=== PATIENT | female | born 1990 | race Caucasian/White ===

== ENCOUNTER 2017-08-29 16:17 | Outpatient (RCR) | payer MEDICAID, SELFPAY ==
[2017-08-29 16:31] LABS: Prothrombin Time Fingerstick 33.7 SEC (11.9-14.4)
== END 2017-08-29 16:18 | disposition home or self-care (01) ==
LOC: MTLAB 16:17
PROVIDERS: Visit Provider Internal Medicine Cardiovascular Disease
DX: Z95.2 Presence of prosthetic heart valve (principal)
CPT/HCPCS: 36416; 85610

== ENCOUNTER 2017-10-04 12:43 | Outpatient (RCR) | payer MEDICAID, SELFPAY | END 2017-10-04 13:00 | disposition home or self-care (01) | LOC: MTLAB 12:43 | PROVIDERS: Visit Provider Internal Medicine Cardiovascular Disease | DX: Z95.2 Presence of prosthetic heart valve (principal) | CPT/HCPCS: 36416; 85610 ==

== ENCOUNTER 2017-10-26 16:06 | Outpatient (RCR) | payer MEDICAID, SELFPAY ==
[2017-10-30 08:46] LABS: Prothrombin Time Fingerstick 40.2 SEC (11.9-14.4)
== END 2017-10-26 17:00 | disposition home or self-care (01) ==
LOC: MTLAB 16:06
PROVIDERS: Visit Provider Internal Medicine Cardiovascular Disease
DX: Z95.2 Presence of prosthetic heart valve (principal)
CPT/HCPCS: 36416; 85610

== ENCOUNTER 2017-11-28 16:27 | Outpatient (RCR) | payer MEDICAID, SELFPAY ==
[2017-11-30 07:10] LABS: Prothrombin Time Fingerstick 32.6 SEC (11.9-14.4)
== END 2017-11-28 17:00 | disposition home or self-care (01) ==
LOC: MTLAB 16:27
PROVIDERS: Visit Provider Internal Medicine Cardiovascular Disease
DX: Z95.2 Presence of prosthetic heart valve (principal)
CPT/HCPCS: 36416; 85610

== ENCOUNTER 2017-12-27 14:24 | Outpatient (RCR) | payer MEDICAID, SELFPAY ==
[2017-12-27 14:36] LABS: Prothrombin Time Fingerstick 31.5 SEC (11.9-14.4)
== END 2017-12-27 15:00 | disposition home or self-care (01) ==
LOC: MTLAB 14:24
PROVIDERS: Visit Provider Internal Medicine Cardiovascular Disease
DX: Z95.2 Presence of prosthetic heart valve (principal)
CPT/HCPCS: 36416; 85610

== ENCOUNTER → 2018-01-23 14:18 | Outpatient (CLI) | payer MEDICAID, SELFPAY ==
[2018-01-23 15:49] LABS: International Normalized Ratio 2.2; Prothrombin Time (Protime)PT. 24.7 SECONDS (11.7-14.9)
[2018-01-23 16:01] LABS: ALB/GLOB Ratio 1.2 RATIO (0.9-2.4); AST(SGOT) 16 U/L (15-37); Alanine Aminotransfer ALT/SGPT 21 U/L (13-56); Albumin, Serum 4.5 g/dL (3.2-5.0); Alkaline Phosphatase 56 U/L (45-117); Anion Gap 8 (5-15); BUN 10 mg/dL (7-18); BUN/Creat Ratio 13.2 RATIO (10-20); Calcium,Total 8.5 mg/dL (8.5-10.1); Chloride 108 mmol/L (98-107); Creatinine, Serum 0.76 mg/dL (0.55-1.02); EST Glomerular Filtration Rate 97 mL/min (>60); Est Glom Filt Rate - Afr Amer 118 mL/min (>60); Globulin 3.6 g/dL (2.2-4.2); Glucose 94 mg/dL (74-106); Potassium 3.7 mmol/L (3.5-5.1); Protein, Total 8.1 g/dL (6.4-8.2); Sodium Level 142 mmol/L (136-145)
[2018-01-29 11:54] LABS: Lamotrigine (Lamictal) Level 4.8 ug/mL (2.0-20.0)
== END ==
PROVIDERS: Visit Provider Internal Medicine Cardiovascular Disease
DX: G40.309 Generalized idiopathic epilepsy and epileptic syndromes, not intractable, without status epilepticus (principal); Z95.2 Presence of prosthetic heart valve
CPT/HCPCS: 36415; 80053; 82542; 85610

== ENCOUNTER 2018-02-13 14:37 | Outpatient (RCR) | payer MEDICAID, SELFPAY | END 2018-02-13 16:00 | LOC: MTLAB 14:37 | PROVIDERS: Visit Provider Internal Medicine Cardiovascular Disease | DX: Z95.2 Presence of prosthetic heart valve (principal) | CPT/HCPCS: 36416; 85610 ==

== ENCOUNTER 2018-03-25 13:43 | Outpatient (RCR) | payer MEDICAID, SELFPAY ==
[2018-03-11 14:20] LABS: Prothrombin Time Fingerstick 39.1 SEC (11.9-14.4)
[2018-03-25 13:56] LABS: Prothrombin Time Fingerstick 43.4 SEC (11.9-14.4)
[2018-03-25 15:41] LABS: International Normalized Ratio 3.2; Prothrombin Time (Protime)PT. 33.1 SECONDS (11.7-14.9)
== END 2018-03-25 15:00 | disposition home or self-care (01) ==
LOC: MTLAB 13:43
PROVIDERS: Visit Provider Internal Medicine Cardiovascular Disease
DX: Z95.2 Presence of prosthetic heart valve (principal)
CPT/HCPCS: 36415; 36416; 85610

== ENCOUNTER 2018-04-10 11:49 | Outpatient (RCR) | payer MEDICAID, SELFPAY ==
[2018-04-10 14:44] LABS: Hematocrit 39.9 % (37-47); Mean Corp Hgb Conc 35.1 g/gl (32-36); Mean Corpuscular Hgb 33.2 pg (27.0-32.0); Mean Corpuscular Volume 94.5 fL (81-99); Mean Platelet Vol. 10.6 fl (6.2-12.0); Platelet Count 176 K/mm3 (150-450); RBC Distribution Width CV 12.2 % (11.6-14.6); RBC Distribution Width SD 41.2 fl (35.1-43.9); Red Blood Count 4.22 M/mm3 (4.2-5.4); White Blood Count 4.9 K/mm3 (4.4-11.0)
[2018-04-10 14:49] LABS: Scan Indicated on CBC? Y/N NO
[2018-04-10 14:51] LABS: International Normalized Ratio 2.5; Prothrombin Time (Protime)PT. 26.9 SECONDS (11.7-14.9)
[2018-04-10 15:04] LABS: ALB/GLOB Ratio 1.3 RATIO (0.9-2.4); AST(SGOT) 21 U/L (15-37); Alanine Aminotransfer ALT/SGPT 23 U/L (13-56); Albumin, Serum 4.4 g/dL (3.2-5.0); Alkaline Phosphatase 50 U/L (45-117); Anion Gap 9 (5-15); BUN 8 mg/dL (7-18); BUN/Creat Ratio 10.9 RATIO (10-20); Calcium,Total 8.7 mg/dL (8.5-10.1); Chloride 106 mmol/L (98-107); Creatinine, Serum 0.73 mg/dL (0.55-1.02); EST Glomerular Filtration Rate 101 mL/min (>60); Est Glom Filt Rate - Afr Amer 122 mL/min (>60); Globulin 3.4 g/dL (2.2-4.2); Glucose 77 mg/dL (74-106); Protein, Total 7.8 g/dL (6.4-8.2); Sodium Level 141 mmol/L (136-145)
== END 2018-04-10 13:00 ==
LOC: MTLAB 11:49
PROVIDERS: Visit Provider Internal Medicine Cardiovascular Disease
DX: G40.309 Generalized idiopathic epilepsy and epileptic syndromes, not intractable, without status epilepticus (principal)
CPT/HCPCS: 36415; 80053; 85027; 85610

== ENCOUNTER 2018-05-01 10:56 | Outpatient (RCR) | payer MEDICAID, SELFPAY | END 2018-05-01 12:00 | disposition home or self-care (01) | LOC: MTLAB 10:56 | PROVIDERS: Visit Provider Internal Medicine Cardiovascular Disease | DX: Z95.2 Presence of prosthetic heart valve (principal) | CPT/HCPCS: 36416; 85610 ==

== ENCOUNTER 2018-05-28 12:27 | Outpatient (RCR) | payer MEDICAID, SELFPAY ==
[2018-05-28 12:45] LABS: Prothrombin Time Fingerstick 25.6 SEC (11.9-14.4)
== END 2018-05-28 14:00 | disposition home or self-care (01) ==
LOC: MTLAB 12:27
PROVIDERS: Referring Provider Internal Medicine Cardiovascular Disease; Visit Provider Internal Medicine Cardiovascular Disease
DX: Z95.2 Presence of prosthetic heart valve (principal); G40.309 Generalized idiopathic epilepsy and epileptic syndromes, not intractable, without status epilepticus
CPT/HCPCS: 36416; 85610

== ENCOUNTER 2018-06-26 12:04 | Outpatient (RCR) | payer MEDICAID, SELFPAY ==
[2018-06-26 12:16] LABS: Prothrombin Time Fingerstick 27.6 SEC (11.9-14.4)
== END 2018-06-26 13:00 | disposition home or self-care (01) ==
LOC: MTLAB 12:04
PROVIDERS: Referring Provider Internal Medicine Cardiovascular Disease; Visit Provider Internal Medicine Cardiovascular Disease
DX: Z95.2 Presence of prosthetic heart valve (principal); G40.309 Generalized idiopathic epilepsy and epileptic syndromes, not intractable, without status epilepticus
CPT/HCPCS: 36416; 85610

== ENCOUNTER 2018-07-31 11:06 | Outpatient (RCR) | payer MEDICAID, SELFPAY ==
[2018-07-25 15:41] LABS: Prothrombin Time Fingerstick 22.3 SEC (11.9-14.4)
[2018-07-31 11:21] LABS: Prothrombin Time Fingerstick 25.7 SEC (11.9-14.4)
== END 2018-07-31 12:00 | disposition home or self-care (01) ==
LOC: MTLAB 11:06
PROVIDERS: Family Provider Internal Medicine; PCP Internal Medicine; Referring Provider Internal Medicine Cardiovascular Disease; Visit Provider Internal Medicine Cardiovascular Disease
DX: I35.9 Nonrheumatic aortic valve disorder, unspecified (principal); G40.309 Generalized idiopathic epilepsy and epileptic syndromes, not intractable, without status epilepticus
CPT/HCPCS: 36416; 85610

== ENCOUNTER 2018-08-27 13:25 | Outpatient (RCR) | payer MEDICAID, SELFPAY ==
[2018-08-13 13:51] LABS: Prothrombin Time Fingerstick 19.6 SEC (11.9-14.4)
[2018-08-13 14:14] LABS: International Normalized Ratio 1.7; Prothrombin Time (Protime)PT. 20.4 SECONDS (11.7-14.9)
[2018-08-19 11:41] LABS: Prothrombin Time Fingerstick 21.3 SEC (11.9-14.4)
[2018-08-19 14:15] LABS: International Normalized Ratio 1.9; Prothrombin Time (Protime)PT. 21.7 SECONDS (11.7-14.9)
[2018-08-27 13:40] LABS: Prothrombin Time Fingerstick 27.9 SEC (11.9-14.4)
== END 2018-08-27 15:00 | disposition home or self-care (01) ==
LOC: MTLAB 13:25
PROVIDERS: Family Provider Internal Medicine; PCP Internal Medicine; Referring Provider Internal Medicine Cardiovascular Disease; Visit Provider Internal Medicine Cardiovascular Disease
DX: I35.9 Nonrheumatic aortic valve disorder, unspecified (principal)
CPT/HCPCS: 36415; 36416; 85610

== ENCOUNTER 2018-09-25 12:42 | Outpatient (RCR) | payer MEDICAID, SELFPAY ==
[2018-09-09 15:17] LABS: Prothrombin Time Fingerstick 31.8 SEC (11.9-14.4)
[2018-09-25 13:02] LABS: Prothrombin Time Fingerstick 24.1 SEC (11.9-14.4)
== END 2018-10-03 15:08 | disposition home or self-care (01) ==
LOC: MTLAB 12:42
PROVIDERS: Family Provider Internal Medicine; PCP Internal Medicine; Referring Provider Internal Medicine Cardiovascular Disease; Visit Provider Internal Medicine Cardiovascular Disease
DX: I35.9 Nonrheumatic aortic valve disorder, unspecified (principal)
CPT/HCPCS: 36416; 85610

== ENCOUNTER 2018-10-21 12:57 | Outpatient (RCR) | payer MEDICAID, SELFPAY ==
[2018-10-08 12:46] LABS: Prothrombin Time Fingerstick 23.7 SEC (11.9-14.4)
[2018-10-21 13:10] LABS: Prothrombin Time Fingerstick 24.2 SEC (11.9-14.4)
== END 2018-10-21 14:00 | disposition home or self-care (01) ==
LOC: MTLAB 12:57
PROVIDERS: Family Provider Internal Medicine; PCP Internal Medicine; Referring Provider Internal Medicine Cardiovascular Disease; Visit Provider Internal Medicine Cardiovascular Disease
DX: I35.9 Nonrheumatic aortic valve disorder, unspecified (principal)
CPT/HCPCS: 36416; 85610

== ENCOUNTER 2018-12-02 13:41 | Outpatient (RCR) | payer MEDICAID, SELFPAY ==
[2018-11-06 14:25] LABS: Prothrombin Time Fingerstick 37.9 SEC (11.9-14.4)
[2018-11-18 13:36] LABS: Prothrombin Time Fingerstick 27.8 SEC (11.9-14.4)
[2018-12-02 14:01] LABS: Prothrombin Time Fingerstick 22.1 SEC (11.9-14.4)
== END 2018-12-03 16:00 | disposition home or self-care (01) ==
LOC: MTLAB 13:41
PROVIDERS: Family Provider Internal Medicine; PCP Internal Medicine; Referring Provider Internal Medicine Cardiovascular Disease; Visit Provider Internal Medicine Cardiovascular Disease
DX: I35.9 Nonrheumatic aortic valve disorder, unspecified (principal)
CPT/HCPCS: 36416; 85610

== ENCOUNTER 2018-12-25 13:44 | Outpatient (RCR) | payer MEDICAID, SELFPAY ==
[2018-12-09 10:41] LABS: Prothrombin Time Fingerstick 15.3 SEC (11.9-14.4)
[2018-12-09 12:20] LABS: International Normalized Ratio 1.8; Prothrombin Time (Protime)PT. 20.9 SECONDS (11.7-14.9)
[2018-12-16 14:00] LABS: Prothrombin Time Fingerstick 18.2 SEC (11.9-14.4)
[2018-12-16 15:47] LABS: International Normalized Ratio 1.8; Prothrombin Time (Protime)PT. 20.7 SECONDS (11.7-14.9)
[2018-12-25 14:01] LABS: Prothrombin Time Fingerstick 19.9 SEC (11.9-14.4)
[2018-12-25 15:53] LABS: Prothrombin Time (Protime)PT. 22.7 SECONDS (11.7-14.9)
== END 2018-12-25 15:00 | disposition home or self-care (01) ==
LOC: MTLAB 13:44
PROVIDERS: Family Provider Internal Medicine; PCP Internal Medicine; Referring Provider Internal Medicine Cardiovascular Disease; Visit Provider Internal Medicine Cardiovascular Disease
DX: I35.9 Nonrheumatic aortic valve disorder, unspecified (principal)
CPT/HCPCS: 36415; 36416; 85610

== ENCOUNTER 2019-01-28 14:32 | Outpatient (RCR) | payer MEDICAID, SELFPAY ==
[2019-01-09 13:41] LABS: Prothrombin Time Fingerstick 22.3 SEC (11.9-14.4)
[2019-01-09 14:21] LABS: International Normalized Ratio 2.3; Prothrombin Time (Protime)PT. 25.6 SECONDS (11.7-14.9)
[2019-01-23 11:36] LABS: Prothrombin Time Fingerstick 18.3 SEC (11.9-14.4)
[2019-01-23 17:06] LABS: Prothrombin Time (Protime)PT. 22.2 SECONDS (11.7-14.9)
[2019-01-28 14:46] LABS: Prothrombin Time Fingerstick 21.3 SEC (11.9-14.4)
[2019-01-28 17:34] LABS: International Normalized Ratio 2.3; Prothrombin Time (Protime)PT. 25.5 SECONDS (11.7-14.9)
== END 2019-01-28 15:00 | disposition home or self-care (01) ==
LOC: MTLAB 14:32
PROVIDERS: Family Provider Internal Medicine; PCP Internal Medicine; Referring Provider Internal Medicine Cardiovascular Disease; Visit Provider Internal Medicine Cardiovascular Disease
DX: I35.9 Nonrheumatic aortic valve disorder, unspecified (principal)
CPT/HCPCS: 36415; 36416; 85610

== ENCOUNTER 2019-02-26 12:11 | Outpatient (RCR) | payer MEDICAID, SELFPAY ==
[2019-02-10 11:35] LABS: Prothrombin Time Fingerstick 20.4 SEC (11.9-14.4)
[2019-02-10 13:51] LABS: International Normalized Ratio 2.1; Prothrombin Time (Protime)PT. 23.2 SECONDS (11.7-14.9)
[2019-02-26 12:26] LABS: Prothrombin Time Fingerstick 19.6 SEC (11.9-14.4)
[2019-02-26 13:11] LABS: International Normalized Ratio 2.3; Prothrombin Time (Protime)PT. 25.2 SECONDS (11.7-14.9)
== END 2019-02-26 13:00 | disposition home or self-care (01) ==
LOC: MTLAB 12:11
PROVIDERS: Family Provider Internal Medicine; PCP Internal Medicine; Referring Provider Internal Medicine Cardiovascular Disease; Visit Provider Internal Medicine Cardiovascular Disease
DX: I35.9 Nonrheumatic aortic valve disorder, unspecified (principal)
CPT/HCPCS: 36415; 36416; 85610

== ENCOUNTER 2019-03-24 14:27 | Outpatient (RCR) | payer MEDICAID, SELFPAY ==
[2019-03-10 15:18] LABS: Prothrombin Time Fingerstick 25.5 SEC (11.9-14.4)
[2019-03-24 17:54] LABS: Absolute Lymphocyte Count 1.03 X10^3/uL (0.83-4.51); Absolute Neutrophil Count 3.9 X10^3/uL (2.0-7.7); Basophil# 0.04 X10^3/uL; Basophil% 0.7 % (0-1); Eosinophil# 0.02 X10^3/uL; Eosinophils% 0.4 % (0-5); Hematocrit 42.5 % (37-47); Hemoglobin 14.3 g/dL (12.0-15.0); Lymphocyte # 1.03 X10^3/ul (4.0); Lymphocyte % 19.2 % (19-41); Mean Corp Hgb Conc 33.6 g/dL (32-36); Mean Corpuscular Hgb 33.1 pg (27.0-32.0); Mean Corpuscular Volume 98.4 fL (81-99); Mean Platelet Vol. 10.2 fl (6.2-12.0); Monocyte# 0.41 X10^3/uL; Monocyte% 7.6 % (0-10); NRBC Flagged by Analyzer 0 % (0-5); Neutrophil # 3.86 X10^3/uL (2.7-7.7); Neutrophil % 71.9 % (47-70); Platelet Count 216 K/mm3 (150-450); RBC Distribution Width CV 11.9 % (11.6-14.6); Red Blood Count 4.32 M/mm3 (4.2-5.4); White Blood Count 5.4 K/mm3 (4.4-11.0)
[2019-03-24 17:57] LABS: ALB/GLOB Ratio 1.5 RATIO (0.9-2.4); AST(SGOT) 14 U/L (15-37); Alanine Aminotransfer ALT/SGPT 22 U/L (13-56); Albumin, Serum 4.6 g/dL (3.2-5.0); Alkaline Phosphatase 49 U/L (45-117); Anion Gap 8 (5-15); BUN 10 mg/dL (7-18); BUN/Creat Ratio 14.8 RATIO (10-20); Chloride 107 mmol/L (98-107); Creatinine, Serum 0.68 mg/dL (0.55-1.02); EST Glomerular Filtration Rate 110 mL/min (>60); Est Glom Filt Rate - Afr Amer 133 mL/min (>60); Globulin 3.1 g/dL (2.2-4.2); Glucose 71 mg/dL (74-106); Potassium 4.1 mmol/L (3.5-5.1); Protein, Total 7.7 g/dL (6.4-8.2); Sodium Level 142 mmol/L (136-145)
[2019-03-27 14:11] LABS: Lamotrigine (Lamictal) Level 3.8 ug/mL (2.0-20.0)
== END 2019-03-24 15:27 | disposition home or self-care (01) ==
LOC: MTLAB 14:27
PROVIDERS: Family Provider Internal Medicine; PCP Internal Medicine; Referring Provider Internal Medicine Cardiovascular Disease; Visit Provider Internal Medicine Cardiovascular Disease
DX: I35.9 Nonrheumatic aortic valve disorder, unspecified (principal)
CPT/HCPCS: 36415; 36416; 80053; 82542; 85025; 85610

== ENCOUNTER 2019-05-01 12:09 | Outpatient (RCR) | payer MEDICAID, SELFPAY ==
[2019-05-02 09:04] LABS: Prothrombin Time Fingerstick 25.5 SEC (11.9-14.4)
== END 2019-05-01 18:00 | disposition home or self-care (01) ==
LOC: MTLAB 12:09
PROVIDERS: Family Provider Internal Medicine; PCP Internal Medicine; Referring Provider Internal Medicine Cardiovascular Disease; Visit Provider Internal Medicine Cardiovascular Disease
DX: I35.9 Nonrheumatic aortic valve disorder, unspecified (principal)
CPT/HCPCS: 36416; 85610

== ENCOUNTER 2019-05-13 16:35 | Emergency (ER) | payer MEDICAID, SELFPAY ==
[2019-05-13 16:36] VITALS: BP 119/68; PULSE 89; RESP 20; TEMP 36.9; O2SAT 98; BMI 18.9
--- NOTE | 2019-05-13 17:21 | RAD_ITS ---
STUDY: X-RAY - LEFT FEMUR REASON FOR STUDY: Female, 29 years old. Leg pain TECHNIQUE: 4 view(s) of the femur. COMPARISON: None. FINDINGS: Normal visualized femur. Normal visualized soft tissue structure. RAD/Femur Min 2 Views IMPRESSION: Normal x-ray examination of the femur. Electronically Signed: Raimundo Ying DO at 18:33 EDT Tel , Service support ,
--- NOTE | 2019-05-13 17:23 | ED.VISSUMM ---
- ER Visit Summary Date of Service: 05/13/19 Chief Complaint: Left thigh injury History of Present Illness: The patient is a 29 F who presents the emergency department for left thigh injury. Patient states that she is on Coumadin and today was helping her dog up the stairs today when she slipped and fell falling forward into the left side. She notes bruising to the left thigh and tenderness. She has been able to bear weight. She denies striking her head or any other injuries Physical Examination: Afebrile vital signs are stable Left lateral thigh demonstrates contusion and hematoma. There is a small contusion on the inferior medial aspect of the thigh. Neurovascular intact. Test Results: Femur films were obtained and were negative for fracture. INR was checked. Emergency Department Course and Treatment: Patient will be discharged home with supportive care. She is to follow-up with her doctors. She is to relay her INR to her Coumadin physician. Impression: 1. Left thigh hematoma and contusion 2. Coumadin coagulopathy This note was generated with [employer] dictation software. It may contain incorrect words, spelling, and punctuation that were not noted in review of the chart prior to signing ED Disposition - Plan for ED Patient: Disposition: Home or Assisted Living Instructions: Hematoma, CONTUSION, Lower Extremity Referrals: Dane Escalante MD [Primary Care Provider] - As Needed Additional Instructions: Your INR today was 2.6. Please relay this to your Coumadin physician
[2019-05-13 18:16] LABS: International Normalized Ratio 2.6; Prothrombin Time (Protime)PT. 28.1 SECONDS (11.7-14.9)
[2019-05-13 18:56] VITALS: BP 97/54; RESP 18
== END 2019-05-13 18:59 | disposition home or self-care (01) ==
PROVIDERS: Emergency Provider Emergency Medicine; Family Provider Internal Medicine; PCP Internal Medicine
DX: S70.12XA Contusion of left thigh, initial encounter (principal); D68.32 Hemorrhagic disorder due to extrinsic circulating anticoagulants; T45.515A Adverse effect of anticoagulants, initial encounter; W10.9XXA Fall (on) (from) unspecified stairs and steps, initial encounter; Y93.9 Activity, unspecified; Y92.9 Unspecified place or not applicable; G40.909 Epilepsy, unspecified, not intractable, without status epilepticus; Z79.899 Other long term (current) drug therapy
CPT/HCPCS: 73552; 85610; 99283; A4216

== ENCOUNTER 2019-05-29 14:39 | Outpatient (RCR) | payer MEDICAID, SELFPAY ==
[2019-05-29 14:54] LABS: Prothrombin Time Fingerstick 27.1 SEC (11.9-14.4)
== END 2019-05-29 18:00 | disposition home or self-care (01) ==
LOC: MTLAB 14:39
PROVIDERS: Family Provider Internal Medicine; PCP Internal Medicine; Referring Provider Internal Medicine Cardiovascular Disease; Visit Provider Internal Medicine Cardiovascular Disease
DX: I35.9 Nonrheumatic aortic valve disorder, unspecified (principal)
CPT/HCPCS: 36416; 85610

== ENCOUNTER 2019-06-25 13:10 | Outpatient (RCR) | payer MEDICAID, SELFPAY ==
[2019-06-12 17:49] LABS: Prothrombin Time Fingerstick 25.2 SEC (11.9-14.4)
[2019-06-25 13:21] LABS: Prothrombin Time Fingerstick 38.7 SEC (11.9-14.4)
== END 2019-06-25 18:00 | disposition home or self-care (01) ==
LOC: MTLAB 13:10
PROVIDERS: Family Provider Internal Medicine; PCP Internal Medicine; Referring Provider Internal Medicine Cardiovascular Disease; Visit Provider Internal Medicine Cardiovascular Disease
DX: I35.9 Nonrheumatic aortic valve disorder, unspecified (principal)
CPT/HCPCS: 36416; 85610

== ENCOUNTER 2019-07-23 11:05 | Outpatient (RCR) | payer MEDICAID, SELFPAY ==
[2019-07-11 15:16] LABS: Prothrombin Time Fingerstick 28.1 SEC (11.9-14.4)
[2019-07-23 11:21] LABS: Prothrombin Time Fingerstick 21.3 SEC (11.9-14.4)
[2019-07-23 13:06] LABS: Prothrombin Time (Protime)PT. 22.8 SECONDS (11.7-14.9)
== END 2019-07-23 18:00 | disposition home or self-care (01) ==
LOC: MTLAB 11:05
PROVIDERS: Family Provider Internal Medicine; PCP Internal Medicine; Referring Provider Internal Medicine Cardiovascular Disease; Visit Provider Internal Medicine Cardiovascular Disease
DX: I35.9 Nonrheumatic aortic valve disorder, unspecified (principal)
CPT/HCPCS: 36415; 36416; 85610

== ENCOUNTER 2019-08-10 16:17 | Emergency (ER) | payer MEDICAID, SELFPAY ==
[2019-08-10 16:17] VITALS: BP 139/79; PULSE 97; RESP 18; TEMP 36.2; O2SAT 97; BMI 19.4
[2019-08-10 16:51] VITALS: O2SAT 97
--- NOTE | 2019-08-10 17:04 | ED.VIS.URI ---
History of Present Illness Chief Complaint: Cough Informant: Patient Onset: Weeks - 1 Context: Gradual Onset Timing: Continuous Quality: occasionally productive of phlegm Current Severity: Moderate Maximum Severity: Moderate Worsened by: - - nothing Relieved by: - - improves w/ robitussin Associated Symptoms: Nasal Congestion, Productive Cough. Negative for: Headache, Sinus Pressure, Myalgias, Nausea, Vomiting, Diarrhea, Shortness of Breath, Chest Pain, Hemoptysis Narrative: Patient has had upper respiratory infection symptoms for a week. No fevers. Her ears have been popping. No hoarseness, no dyspnea, no chest pain. She has a history of Marfan's and had a thoracic aortic aneurysm that was repaired in addition to mechanical valve for which she is on warfarin. She had her INR checked 2 days ago but does not remember what it was. She has had contact with multiple family members with the same symptoms, they are better now. - Past Medical History (1) Marfan syndrome Status: Chronic Past Medical History - Allergies and Home Meds Allergies/Adverse Reactions: Allergies adapalene [From Differin] Allergy (Verified 08/10/19 16:54) Rash sulfamethoxazole [From Bactrim] Allergy (Verified 08/10/19 16:54) Other trimethoprim [From Bactrim] Allergy (Verified 08/10/19 16:54) Other Primary Care Physician: Dane Escalante MD [Primary Care Provider] - Surgical History: - - Mechanical aortic valve replacement, thoracic aortic aneurysm repair Lives: With Family Smoking Status: Never smoker Review of Systems General: Reports: Malaise. Denies: Chills, Fever, Sweats Eyes: Denies: Visual changes - bilaterally, Diplopia ENT: Reports: Rhinorrhea. Denies: Bilateral ear pain, Sore throat Cardiovascular: Denies: Chest pain, Palpitations Respiratory: Reports: Cough, Sputum. Denies: Dyspnea, Dyspnea on exertion Gastrointestinal: Denies: Abdominal pain, Nausea, Vomiting, Diarrhea, Melena, Hematochezia Genitourinary: Denies: Dysuria, Hematuria, Frequency Musculoskeletal: Denies: Back pain, Extremity Pain Skin: Denies: Rash, Wounds Neurological: Denies: Headache, Weakness, Numbness Physical Exam Vital Signs/Narrative: Vital Signs Temp Pulse Resp BP Pulse Ox 08/10/19 16:17 97.1 F L 97 18 139/79 H 97 Inital Vital Signs reviewed: Yes General: Well nourished, Well developed, - - well-appearing, nad Head: Normocephalic, Atraumatic Eyes: Perrl, EOMI Ears: Normal external canal, TM's clear Nose: Congestion. Negative for: Erythema, Swollen Turbinates, Purulent Drainage Mouth/Throat: Normal Inspection, No Posterior Erythema, Airway Patent Tonsils: Negative for: Right Tonsilar Exudates, Left Tonsilar Exudates, Right Tonsilar Swelling, Left Tonsilar Swelling Neck: Supple, Nontender, No Lymphadenopathy, No Meningismus Cardiovascular: Regular rate, Regular rhythm, Murmur - slight systolic w/ loud click Respiratory: No distress, CTA bilaterally, Chest nontender Extremities: Nontender, No edema Skin: Normal color, No rash Neurological: Alert, Oriented x3, Cranial nerves II-XII grossly intact, Normal Strength, Normal Sensation Psychological: Normal affect, Normal Mood Diagnostic/Tx/Re-eval - Medical Decision Making INR from a couple days ago was 3.1. Therapeutic. Her exam is reassuring and consistent with a viral URI, we discussed why antibiotics are not indicated and she understands. Her cough is most prominent symptom, she will be given a prescription for Robitussin-AC and instructions for use. ED Disposition - Plan for ED Patient: Disposition: Home or Assisted Living Diagnosis: Viral URI with cough Instructions: URI, Viral, No Abx (Adult) Prescriptions: Guaifenesin/Codeine [Robitussin AC] 5 - 10 ml PO Q6H PRN PRN #4 oz PRN Reason: Cough Transmission Status: Sent to [id number] Referrals: Dane Escalante MD [Primary Care Provider] - 1 Week if not improving
--- NOTE | 2019-08-10 17:16 | ED.RN ---
DISCHARGE INSTRUCTIONS GIVEN TO AND REVIEWED WITH PATIENT, PATIENT DENIES QUESTIONS OR CONCERNS AND VOICES UNDERSTANDING OF DISCHARGE INSTRUCTIONS. PT AMBULATES OUT OF ROOM WITHOUT DIFFICULTY.
== END 2019-08-10 17:16 | disposition home or self-care (01) ==
PROVIDERS: Emergency Provider Emergency Medicine; Family Provider Internal Medicine; PCP Internal Medicine
DX: J06.9 Acute upper respiratory infection, unspecified (principal); Q87.40 Marfan syndrome, unspecified; I71.2 Thoracic aortic aneurysm, without rupture; Z95.2 Presence of prosthetic heart valve; Z79.01 Long term (current) use of anticoagulants
CPT/HCPCS: 99282

== ENCOUNTER 2019-09-03 13:06 | Outpatient (RCR) | payer MEDICAID, SELFPAY ==
[2019-08-07 16:00] LABS: International Normalized Ratio 3.1; Prothrombin Time (Protime)PT. 32.4 SECONDS (11.7-14.9)
[2019-08-20 13:51] LABS: Prothrombin Time Fingerstick 29.3 SEC (11.9-14.4)
[2019-09-03 13:16] LABS: Prothrombin Time Fingerstick 22.4 SEC (11.9-14.4)
[2019-09-03 14:38] LABS: Prothrombin Time (Protime)PT. 22.3 SECONDS (11.7-14.9)
== END 2019-09-03 18:00 | disposition home or self-care (01) ==
LOC: MTLAB 13:06
PROVIDERS: Family Provider Internal Medicine; PCP Internal Medicine; Referring Provider Internal Medicine Cardiovascular Disease; Visit Provider Internal Medicine Cardiovascular Disease
DX: Z95.2 Presence of prosthetic heart valve (principal)
CPT/HCPCS: 36415; 36416; 85610

== ENCOUNTER 2019-10-01 13:46 | Outpatient (RCR) | payer MEDICAID, SELFPAY ==
[2019-09-18 15:38] LABS: Absolute Lymphocyte Count 0.85 X10^3/uL (0.83-4.51); Absolute Neutrophil Count 2.3 X10^3/uL (2.0-7.7); Basophil# 0.05 X10^3/uL; Basophil% 1.4 % (0-1); Eosinophil# 0.03 X10^3/uL; Eosinophils% 0.8 % (0-5); Hematocrit 32.1 % (37-47); Hemoglobin 9.8 g/dL (12.0-15.0); Lymphocyte # 0.85 X10^3/ul (4.0); Lymphocyte % 24.1 % (19-41); Mean Corp Hgb Conc 30.5 g/dL (32-36); Mean Corpuscular Hgb 26.9 pg (27.0-32.0); Mean Corpuscular Volume 88.2 fL (81-99); Mean Platelet Vol. 10.2 fl (6.2-12.0); Monocyte# 0.34 X10^3/uL; Monocyte% 9.6 % (0-10); NRBC Flagged by Analyzer 0 % (0-5); Neutrophil # 2.25 X10^3/uL (2.7-7.7); Neutrophil % 63.8 % (47-70); Platelet Count 171 K/mm3 (150-450); RBC Distribution Width SD 38.8 fl (35.1-43.9); Red Blood Count 3.64 M/mm3 (4.2-5.4); White Blood Count 3.5 K/mm3 (4.4-11.0)
[2019-09-18 16:05] LABS: Thyroid Stim Hormone (TSH) 0.64 uIU/mL (0.358-3.74)
[2019-09-18 16:18] LABS: International Normalized Ratio 2.4; Prothrombin Time (Protime)PT. 26.3 SECONDS (11.7-14.9)
[2019-10-01 13:56] LABS: Prothrombin Time Fingerstick 23.2 SEC (11.9-14.4)
== END 2019-10-01 18:00 | disposition home or self-care (01) ==
LOC: MTLAB 13:46
PROVIDERS: Obstetrics & Gynecology; Family Provider Internal Medicine; PCP Internal Medicine; Referring Provider Internal Medicine Cardiovascular Disease; Visit Provider Internal Medicine Cardiovascular Disease
DX: Z95.2 Presence of prosthetic heart valve (principal)
CPT/HCPCS: 36415; 36416; 84443; 85025; 85610

== ENCOUNTER 2019-10-15 08:43 | Outpatient (RCR) | payer MEDICAID, SELFPAY ==
[2019-10-15 10:10] LABS: Prothrombin Time Fingerstick 25.9 SEC (11.9-14.4)
== END 2019-10-15 18:00 | disposition home or self-care (01) ==
LOC: MTLAB 08:43
PROVIDERS: Family Provider Internal Medicine; PCP Internal Medicine; Referring Provider Internal Medicine Cardiovascular Disease; Visit Provider Internal Medicine Cardiovascular Disease
DX: Z95.2 Presence of prosthetic heart valve (principal)
CPT/HCPCS: 36416; 85610

== ENCOUNTER 2019-11-27 16:14 | Outpatient (RCR) | payer MEDICAID, SELFPAY ==
[2019-11-27 16:40] LABS: Prothrombin Time Fingerstick 30.3 SEC (11.9-14.4)
== END 2019-12-04 18:00 | disposition home or self-care (01) ==
LOC: MTLAB 16:14
PROVIDERS: Family Provider Internal Medicine; PCP Internal Medicine; Referring Provider Internal Medicine Cardiovascular Disease; Visit Provider Internal Medicine Cardiovascular Disease
DX: Z95.2 Presence of prosthetic heart valve (principal)
CPT/HCPCS: 36416; 85610

== ENCOUNTER 2020-01-14 12:59 | Outpatient (RCR) | payer MEDICAID, SELFPAY ==
[2020-01-15 08:45] LABS: Prothrombin Time Fingerstick 28.3 SEC (11.9-14.4)
== END 2020-01-14 18:00 | disposition home or self-care (01) ==
LOC: MTLAB 12:59
PROVIDERS: Family Provider Internal Medicine; PCP Internal Medicine; Referring Provider Internal Medicine Cardiovascular Disease; Visit Provider Internal Medicine Cardiovascular Disease
DX: Z95.2 Presence of prosthetic heart valve (principal)
CPT/HCPCS: 36416; 85610

== ENCOUNTER 2020-04-05 13:03 | Outpatient (RCR) | payer MEDICAID, SELFPAY ==
[2020-03-10 16:36] LABS: Prothrombin Time Fingerstick 30.1 SEC (11.9-14.4)
[2020-04-05 13:16] LABS: Prothrombin Time Fingerstick 26.6 SEC (11.9-14.4)
== END 2020-04-05 18:00 | disposition home or self-care (01) ==
LOC: MTLAB 13:03
PROVIDERS: Family Provider Internal Medicine; PCP Internal Medicine; Referring Provider Internal Medicine Cardiovascular Disease; Visit Provider Internal Medicine Cardiovascular Disease
DX: Z95.2 Presence of prosthetic heart valve (principal)
CPT/HCPCS: 36416; 85610

== ENCOUNTER 2020-05-03 12:15 | Outpatient (RCR) | payer MEDICAID, SELFPAY ==
[2020-05-03 12:31] LABS: Prothrombin Time Fingerstick 27.3 SEC (11.9-14.4)
== END 2020-05-03 18:00 | disposition home or self-care (01) ==
LOC: MTLAB 12:15
PROVIDERS: Family Provider Internal Medicine; PCP Internal Medicine; Referring Provider Internal Medicine Cardiovascular Disease; Visit Provider Internal Medicine Cardiovascular Disease
DX: Z95.2 Presence of prosthetic heart valve (principal)
CPT/HCPCS: 36416; 85610

== ENCOUNTER 2020-06-11 10:43 | Outpatient (RCR) | payer MEDICAID, SELFPAY ==
[2020-06-11 10:51] LABS: Prothrombin Time Fingerstick 37.8 SEC (11.9-14.4)
== END 2020-06-11 18:00 | disposition home or self-care (01) ==
LOC: MTLAB 10:43
PROVIDERS: Family Provider Internal Medicine; PCP Internal Medicine; Referring Provider Internal Medicine Cardiovascular Disease; Visit Provider Internal Medicine Cardiovascular Disease
DX: Z95.2 Presence of prosthetic heart valve (principal)
CPT/HCPCS: 36416; 85610

== ENCOUNTER 2020-07-07 11:15 | Outpatient (RCR) | payer MEDICAID, SELFPAY ==
[2020-07-07 13:06] LABS: Prothrombin Time Fingerstick 32.4 SEC (11.9-14.4)
== END 2020-07-07 18:00 | disposition home or self-care (01) ==
LOC: MTLAB 11:15
PROVIDERS: Family Provider Internal Medicine; PCP Internal Medicine; Referring Provider Internal Medicine Cardiovascular Disease; Visit Provider Internal Medicine Cardiovascular Disease
DX: Z95.2 Presence of prosthetic heart valve (principal)
CPT/HCPCS: 36416; 85610

== ENCOUNTER 2020-08-10 11:59 | Outpatient (RCR) | payer MEDICAID, SELFPAY | END 2020-08-10 18:00 | disposition home or self-care (01) | LOC: MTLAB 11:59 | PROVIDERS: Family Provider Internal Medicine; PCP Internal Medicine; Referring Provider Internal Medicine Cardiovascular Disease; Visit Provider Internal Medicine Cardiovascular Disease | DX: Z95.2 Presence of prosthetic heart valve (principal) | CPT/HCPCS: 36416; 85610 ==

== ENCOUNTER 2020-09-16 12:20 | Outpatient (RCR) | payer MEDICAID, SELFPAY ==
[2020-09-16 12:31] LABS: Prothrombin Time Fingerstick 26.3 SEC (11.9-14.4)
== END 2020-09-16 18:00 | disposition home or self-care (01) ==
LOC: MTLAB 12:20
PROVIDERS: Family Provider Internal Medicine; PCP Internal Medicine; Referring Provider Internal Medicine Cardiovascular Disease; Visit Provider Internal Medicine Cardiovascular Disease
DX: Z95.2 Presence of prosthetic heart valve (principal)
CPT/HCPCS: 36416; 85610

== ENCOUNTER 2020-10-05 09:40 | Emergency (ER) | payer MEDICAID, SELFPAY ==
[2020-10-05 09:41] VITALS: BP 145/117; PULSE 98; RESP 16; TEMP 36.4; O2SAT 100; BMI 19.4
--- NOTE | 2020-10-05 09:51 | CT_ITS ---
STUDY: CT BRAIN WITHOUT CONTRAST REASON FOR EXAM: Female, 30 years old. Head trauma on coumadin RADIATION DOSAGE (If Supplied By Facility): CTDIvol = ( 60.81 ) mGy, DLP = ( 998.67 ) mGycm TECHNIQUE: Transaxial CT imaging of the brain was performed without administration of intravenous contrast material. Individualized dose optimization techniques were used for this CT. COMPARISON: Comparison is made with prior study 11/23/2016. FINDINGS: Normal soft tissue structures. Normal calvarium. Normal size ventricles and extra-axial spaces for the patient''s age. Normal white matter tracts of the cerebral hemispheres. Normal basal ganglia and thalami. Normal brainstem. Normal cerebellum. Stable prominence of the cisterna magna. There is no intracranial hemorrhage. There are no findings of an acute ischemic infarction. Normal visualized paranasal sinuses. CT/Brain/Head without Contrast IMPRESSION: Normal unenhanced CT scan of the brain. Electronically Signed: Butch Rivera MD at 10:35 EST , Service support ,
--- NOTE | 2020-10-05 09:52 | ED.DCSUM_ITS ---
- ER Visit Summary Date of Service: 10/05/20 Chief Complaint: Fell down about 20 steps with a head injury History of Present Illness: The patient is a 30 F 3 of mechanical heart valves secondary to Marfan syndrome also has a history of hypertension. She is on Coumadin her last INR check was between 2 and half and 3-1/2 and she said she is very stable. Basically today she was walking down indoor steps slipped and went down about 20 steps. Her only complaint is pain in her posterior scalp. She denies any LOC. She has no neck pain. No arm or leg pain or weakness or numbness. No chest back or abdominal pain. Physical Examination: Young female no acute distress vital signs stable her initial blood pressure is elevated 144/117 to be rechecked. H EENT exam pupils are unreactive light his motions are intact pupils about 2 mm bilaterally. No signs of facial trauma. Extraocular motions are intact. Posterior left lower scalp there is a small hematoma. No laceration. Neck is completely nontender with full range of motion. Trachea midline. Lungs clear to auscultation bilaterally. Heart regular rhythm rate about 95 prosthetic heart valve click with a systolic ejection murmur. Chest wall nontender. Abdomen soft nontender. No peritoneal signs. Pelvic girdle intact. Back nontender. Spine nontender. Patient moving all 4 extremities. Nontender. No deformity. Normal range of motion. Normal payroll analyst strength and sensation. Neurologically she is awake and alert. She has no focal motor or sensory deficits. She is answering questions and following commands. She is acting appropriately. is at bedside. Test Results: CAT scan brain without contrast as read by the radiologist and reviewed by me shows posterior scalp hematoma but no acute intracranial bleed. No skull fracture. I went over the CAT scan results the patient and her . On repeat exam at 1050 she is doing well. Neurologic exam remains normal. We discussed risk of delayed intracranial bleed what to watch for. Emergency Department Course and Treatment: Young female with prosthetic heart valve on Coumadin slid down steps after slipping and falling hitting the back of her head. CAT scan being obtained. I discussed getting a PT/INR with her she said her Coumadin level is usually very stable she had it checked about 2 weeks ago and she does not want a blood draw. Ice pack to the back of her head. She did not want a Tylenol for pain. Treatment Plan: Head injury instructions. Return if severe headache, intractable vomiting or not acting right. Disposition: Discharge Impression: Acute fall down steps Closed head injury Anticoagulated on Coumadin History of prosthetic heart valve secondary to Marfan's History of seizures This note was generated with [employer] dictation software. It may contain incorrect words, spelling, and punctuation that were not noted in review of the chart prior to signing ED Disposition - Plan for ED Patient: Disposition: Home or Assisted Living Instructions: ED Head Injury (Adult) Referrals: Dane Escalante MD [Primary Care Provider] - 3-5 Days if not improving Additional Instructions: Tylenol for pain and headache. Ice to your scalp to decrease the swelling. Follow the head injury instructions. If you develop worsening headache, intractable vomiting or not acting right you should return the emergency department for further evaluation.
--- NOTE | 2020-10-05 09:57 | ED.DEP ---
ED Disposition - Plan for ED Patient: Disposition: Home or Assisted Living Instructions: ED Head Injury (Adult) Referrals: Dane Escalante MD [Primary Care Provider] - 3-5 Days if not improving Additional Instructions: Tylenol for pain and headache. Ice to your scalp to decrease the swelling. Follow the head injury instructions. If you develop worsening headache, intractable vomiting or not acting right you should return the emergency department for further evaluation.
[2020-10-05 11:04] VITALS: BP 146/99; PULSE 96; RESP 15; O2SAT 100
== END 2020-10-05 11:05 | disposition home or self-care (01) ==
LOC: ED 10:26
PROVIDERS: Emergency Provider Emergency Medicine; PCP Internal Medicine
DX: S00.03XA Contusion of scalp, initial encounter (principal); W10.9XXA Fall (on) (from) unspecified stairs and steps, initial encounter; Y93.01 Activity, walking, marching and hiking; Y92.9 Unspecified place or not applicable; I10 Essential (primary) hypertension; Q87.40 Marfan syndrome, unspecified; G40.909 Epilepsy, unspecified, not intractable, without status epilepticus; Z95.2 Presence of prosthetic heart valve; Z79.01 Long term (current) use of anticoagulants; Z79.899 Other long term (current) drug therapy
CPT/HCPCS: 70450; 99282

== ENCOUNTER 2020-10-13 12:30 | Outpatient (RCR) | payer MEDICAID, SELFPAY ==
[2020-10-13 12:41] LABS: Prothrombin Time Fingerstick 24.7 SEC (11.9-14.4)
== END 2020-10-13 18:00 | disposition home or self-care (01) ==
LOC: MTLAB 12:30
PROVIDERS: Family Provider Internal Medicine; PCP Internal Medicine; Referring Provider Internal Medicine Cardiovascular Disease; Visit Provider Internal Medicine Cardiovascular Disease
DX: Z95.2 Presence of prosthetic heart valve (principal)
CPT/HCPCS: 36416; 85610

== ENCOUNTER 2020-11-10 13:26 | Outpatient (RCR) | payer MEDICAID, SELFPAY ==
[2020-11-10 13:36] LABS: INR Fingerstick 2.3; Prothrombin Time Fingerstick 25.6 SEC (11.9-14.4)
== END 2020-11-10 18:00 | disposition home or self-care (01) ==
LOC: MTLAB 13:26
PROVIDERS: Family Provider Internal Medicine; PCP Internal Medicine; Referring Provider Internal Medicine Cardiovascular Disease; Visit Provider Internal Medicine Cardiovascular Disease
DX: Z95.2 Presence of prosthetic heart valve (principal)
CPT/HCPCS: 36416; 85610

== ENCOUNTER 2020-12-08 13:48 | Outpatient (RCR) | payer MEDICAID, SELFPAY ==
[2020-12-08 15:35] LABS: Prothrombin Time Fingerstick 33.5 SEC (11.9-14.4)
== END 2020-12-08 18:00 | disposition home or self-care (01) ==
LOC: MTLAB 13:48
PROVIDERS: Family Provider Internal Medicine; PCP Internal Medicine; Referring Provider Internal Medicine Cardiovascular Disease; Visit Provider Internal Medicine Cardiovascular Disease
DX: Z95.2 Presence of prosthetic heart valve (principal)
CPT/HCPCS: 36416; 85610

== ENCOUNTER 2021-01-20 12:23 | Outpatient (RCR) | payer MEDICAID, SELFPAY ==
[2021-01-20 12:35] LABS: INR Fingerstick 2.1; Prothrombin Time Fingerstick 24.4 SEC (11.9-14.4)
== END 2021-01-20 18:00 | disposition home or self-care (01) ==
LOC: MTLAB 12:23
PROVIDERS: Family Provider Internal Medicine; PCP Internal Medicine; Referring Provider Internal Medicine Cardiovascular Disease; Visit Provider Internal Medicine Cardiovascular Disease
DX: Z95.2 Presence of prosthetic heart valve (principal)
CPT/HCPCS: 36416; 85610

== ENCOUNTER 2021-01-29 13:05 | Emergency (ER) | payer MEDICAID, SELFPAY ==
[2021-01-29 13:06] VITALS: BP 117/54; PULSE 72; RESP 14; TEMP 36.6; O2SAT 99; BMI 19.4
--- NOTE | 2021-01-29 13:31 | CT_ITS ---
EXAM: CT ANGIOGRAPHY HEAD AND NECK WITH INTRAVENOUS CONTRAST CLINICAL INDICATION: Marfan, sudden onset R headache/neck pain TECHNIQUE: [place] [facility] [place]/head and neck CT angiography protocol performed with intravenous contrast. This CT exam was performed using one or more of the following dose reduction techniques: automated exposure control, adjustment of the mA and/or kV according to patient size, and/or use of iterative reconstruction technique. This report was created using [employer] report generation technology. MIP reconstructed images were created and reviewed. CONTRAST: 75mL Isovue 370 COMPARISON: None. FINDINGS: HEAD: RIGHT ANTERIOR CEREBRAL ARTERY: Right A1 segment is hypoplastic with right A2 segment supplied through a well perfused anterior communicating artery. No significant stenosis at the visualized segments. No aneurysm. RIGHT MIDDLE CEREBRAL ARTERY: Unremarkable. No significant stenosis at the visualized segments. No aneurysm. RIGHT POSTERIOR CEREBRAL ARTERY: Unremarkable. No occlusion or significant stenosis. No aneurysm. LEFT ANTERIOR CEREBRAL ARTERY: Unremarkable. No significant stenosis at the visualized segments. No aneurysm. LEFT MIDDLE CEREBRAL ARTERY: Unremarkable. No significant stenosis at the visualized segments. No aneurysm. LEFT POSTERIOR CEREBRAL ARTERY: Unremarkable. No occlusion or significant stenosis. No aneurysm. BASILAR ARTERY: Unremarkable. No significant stenosis. No aneurysm. GREAT VESSELS OF AORTIC ARCH: Unremarkable. Normal anatomy, patent. OTHER VASCULATURE: No vascular malformation. NECK: RIGHT COMMON CAROTID ARTERY: Unremarkable. No significant stenosis. No dissection or occlusion. RIGHT INTERNAL CAROTID ARTERY: Unremarkable. No significant stenosis. No dissection or occlusion. RIGHT EXTERNAL CAROTID ARTERY: Unremarkable. No occlusion. RIGHT VERTEBRAL ARTERY: Unremarkable. No significant stenosis. No dissection or occlusion. LEFT COMMON CAROTID ARTERY: Unremarkable. No significant stenosis. No dissection or occlusion. LEFT INTERNAL CAROTID ARTERY: Unremarkable. No significant stenosis. No dissection or occlusion. LEFT EXTERNAL CAROTID ARTERY: Unremarkable. No occlusion. LEFT VERTEBRAL ARTERY: Left vertebral artery is developmentally small/atretic. No significant stenosis. No dissection or occlusion. LUNG APICES: Unremarkable as visualized. SOFT TISSUES: Unremarkable. CAROTID STENOSIS REFERENCE USING NASCET CRITERIA: % ICA stenosis = (1 - narrowest ICA diameter/diameter of distal cervical ICA) x 100. Mild - <50% stenosis. Moderate - 50-69% stenosis. Severe - 70-94% stenosis. Near occlusion - 95-99% stenosis. Occluded - 100% stenosis. IMPRESSION: No acute findings in the arteries of the head and neck. EXAM: CT HEAD WITHOUT INTRAVENOUS CONTRAST CLINICAL INDICATION: Marfan, sudden onset R headache/neck pain TECHNIQUE: Multiple axial images were obtained of the head without intravenous contrast. This CT exam was performed using one or more of the following dose reduction techniques: automated exposure control, adjustment of the mA and/or kV according to patient size, and/or use of iterative reconstruction technique. This report was created using [employer] technology. CONTRAST: 75mL Isovue 370 COMPARISON: None. FINDINGS: BRAIN AND EXTRA-AXIAL SPACES: Unremarkable. No intra- or extra-axial hemorrhage. No evidence of acute infarct. No intracranial mass or mass effect. There is preservation of the cronin/white matter interface. Posterior fossa structures are unremarkable. Ventricles are appropriate for age. No hydrocephalus. Basal cisterns are patent. BONES/JOINTS: Unremarkable. No discrete lytic or blastic abnormalities. SINUSES: Unremarkable as visualized. Clear. MASTOID AIR CELLS: Unremarkable. Clear. ORBITS: Visualized globes, extraocular muscles, optic nerves and retrobulbar fat appear unremarkable. IMPRESSION: Negative head/brain CT without intravenous contrast. Electronically Signed: Deshaun Peterson MD ([place]) at 15:10 EDT , Service support , EXAM: CT ANGIOGRAPHY HEAD AND NECK WITH INTRAVENOUS CONTRAST CLINICAL INDICATION: Marfan, sudden onset R headache/neck pain TECHNIQUE: [place] [facility] [place]/head and neck CT angiography protocol performed with intravenous contrast. This CT exam was performed using one or more of the following dose reduction techniques: automated exposure control, adjustment of the mA and/or kV according to patient size, and/or use of iterative reconstruction technique. This report was created using [employer] technology. MIP reconstructed images were created and reviewed. CONTRAST: 75mL Isovue 370 COMPARISON: None. FINDINGS: HEAD: RIGHT ANTERIOR CEREBRAL ARTERY: Right A1 segment is hypoplastic with right A2 segment supplied through a well perfused anterior communicating artery. No significant stenosis at the visualized segments. No aneurysm. RIGHT MIDDLE CEREBRAL ARTERY: Unremarkable. No significant stenosis at the visualized segments. No aneurysm. RIGHT POSTERIOR CEREBRAL ARTERY: Unremarkable. No occlusion or significant stenosis. No aneurysm. LEFT ANTERIOR CEREBRAL ARTERY: Unremarkable. No significant stenosis at the visualized segments. No aneurysm. LEFT MIDDLE CEREBRAL ARTERY: Unremarkable. No significant stenosis at the visualized segments. No aneurysm. LEFT POSTERIOR CEREBRAL ARTERY: Unremarkable. No occlusion or significant stenosis. No aneurysm. BASILAR ARTERY: Unremarkable. No significant stenosis. No aneurysm. GREAT VESSELS OF AORTIC ARCH: Unremarkable. Normal anatomy, patent. OTHER VASCULATURE: No vascular malformation. NECK: RIGHT COMMON CAROTID ARTERY: Unremarkable. No significant stenosis. No dissection or occlusion. RIGHT INTERNAL CAROTID ARTERY: Unremarkable. No significant stenosis. No dissection or occlusion. RIGHT EXTERNAL CAROTID ARTERY: Unremarkable. No occlusion. RIGHT VERTEBRAL ARTERY: Unremarkable. No significant stenosis. No dissection or occlusion. LEFT COMMON CAROTID ARTERY: Unremarkable. No significant stenosis. No dissection or occlusion. LEFT INTERNAL CAROTID ARTERY: Unremarkable. No significant stenosis. No dissection or occlusion. LEFT EXTERNAL CAROTID ARTERY: Unremarkable. No occlusion. LEFT VERTEBRAL ARTERY: Left vertebral artery is developmentally small/atretic. No significant stenosis. No dissection or occlusion. LUNG APICES: Unremarkable as visualized. SOFT TISSUES: Unremarkable. CAROTID STENOSIS REFERENCE USING NASCET CRITERIA: % ICA stenosis = (1 - narrowest ICA diameter/diameter of distal cervical ICA) x 100. Mild - <50% stenosis. Moderate - 50-69% stenosis. Severe - 70-94% stenosis. Near occlusion - 95-99% stenosis. Occluded - 100% stenosis. IMPRESSION: No acute findings in the arteries of the head and neck. EXAM: CT HEAD WITHOUT INTRAVENOUS CONTRAST CLINICAL INDICATION: Marfan, sudden onset R headache/neck pain TECHNIQUE: Multiple axial images were obtained of the head without intravenous contrast. This CT exam was performed using one or more of the following dose reduction techniques: automated exposure control, adjustment of the mA and/or kV according to patient size, and/or use of iterative reconstruction technique. This report was created using [employer] report [employer] technology. CONTRAST: 75mL Isovue 370 COMPARISON: None. FINDINGS: BRAIN AND EXTRA-AXIAL SPACES: Unremarkable. No intra- or extra-axial hemorrhage. No evidence of acute infarct. No intracranial mass or mass effect. There is preservation of the cronin/white matter interface. Posterior fossa structures are unremarkable. Ventricles are appropriate for age. No hydrocephalus. Basal cisterns are patent. BONES/JOINTS: Unremarkable. No discrete lytic or blastic abnormalities. SINUSES: Unremarkable as visualized. Clear. MASTOID AIR CELLS: Unremarkable. Clear. ORBITS: Visualized globes, extraocular muscles, optic nerves and retrobulbar fat appear unremarkable. CT/CTA Head AND Neck W/ Contrast
[2021-01-29 14:01] LABS: Absolute Lymphocyte Count 1.03 X10^3/uL (0.83-4.51); Absolute Neutrophil Count 3.2 X10^3/uL (2.0-7.7); Basophil# 0.05 X10^3/uL; Eosinophil# 0.02 X10^3/uL; Eosinophils% 0.4 % (0-5); Hematocrit 41.5 % (37-47); Lymphocyte # 1.03 X10^3/ul (0.83-4.51); Lymphocyte % 21.4 % (19-41); Mean Corp Hgb Conc 33.7 g/dL (32-36); Mean Corpuscular Hgb 32.3 pg (27.0-32.0); Mean Corpuscular Volume 95.6 fL (81-99); Mean Platelet Vol. 9.9 fl (6.2-12.0); Monocyte# 0.47 X10^3/uL; Monocyte% 9.8 % (0-10); NRBC Flagged by Analyzer 0 % (0-5); Neutrophil # 3.24 X10^3/uL (2.7-7.7); Neutrophil % 67.2 % (47-70); Platelet Count 176 K/mm3 (150-450); RBC Distribution Width CV 11.9 % (11.6-14.6); RBC Distribution Width SD 41.5 fl (35.1-43.9); Red Blood Count 4.34 M/mm3 (4.2-5.4); White Blood Count 4.8 K/mm3 (4.4-11.0)
[2021-01-29 14:10] LABS: International Normalized Ratio 2.8; Prothrombin Time (Protime)PT. 28.3 SECONDS (11.7-14.9)
[2021-01-29 14:14] LABS: Anion Gap 4 (5-15); BUN 11 mg/dL (7-18); BUN/Creat Ratio 13.1 RATIO (10-20); Calcium,Total 8.8 mg/dL (8.5-10.1); Chloride 106 mmol/L (98-107); Creatinine, Serum 0.84 mg/dL (0.55-1.02); EST Glomerular Filtration Rate 85 mL/min (>60); Est Glom Filt Rate - Afr Amer 103 mL/min (>60); Estimated Creatinine Clearance 81.78 ml/min; Glucose 93 mg/dL (74-106); Sodium Level 141 mmol/L (136-145)
--- NOTE | 2021-01-29 14:15 | EX.ED.DYSGE1 ---
HPI History of Present Illness Chief Complaint: Headache Informant: patient Narrative Narrative: Patient is a 31-year-old female with a past medical history of Marfan syndrome, aortic valve replacement on Coumadin, seizure disorder who presents to the emergency department for acute onset right headache and neck pain. This started an hour prior to arrival. She is never had this before. She currently rates the pain as a 7 out of 10. She did have blurred vision in her right eye at the onset but this seems to be resolving. She denies any head trauma. Certain movement seems to make it worse. She denies any chest pain, shortness of breath or heart palpitations. No weakness or loss of sensation in any extremity. No issues with word finding. She denies any recent illness including any fever/chills. She has taken a Tylenol prior to coming in. She did have a pressure sensation in the right ear but no hearing changes. [facility] Medical History (Updated 01/29/21 @ 15:[address] Hermes Garcia DO) Marfan syndrome Seizure disorder Home Medications folic acid 2 mg PO BID 10/08/13 [History Last Taken 11/19/16] lamotrigine 50 mg PO BREAKFAST 10/08/13 [History Last Taken 11/19/16] lamotrigine 75 mg PO QHS 08/29/14 [History Last Taken Unknown] warfarin [Coumadin ([facility])] 7 mg PO TUFR 11/23/16 [History Last Taken Unknown] codeine-guaifenesin 5 - 10 ml PO Q6H PRN PRN #4 oz 08/10/19 [Rx Last Taken Unknown] warfarin 5 mg PO SUMOWETHSA 08/10/19 [History Last Taken Unknown] Allergy/AdvReac Type Severity Reaction Status Date / Time adapalene [From Differin] Allergy Rash Verified 01/29/21 13:06 sulfamethoxazole Allergy Other Verified 01/29/21 13:06 [From Bactrim] trimethoprim [From Bactrim] Allergy Other Verified 01/29/21 13:06 Surgical History (Updated 01/29/21 @ 14:11 by Tamiko Graff) Mechanical heart valve present Social History Smoking Status: Never smoker ROS ROS ED Constitutional Constitutional ED: Denies chills or fever(s) Eyes Eyes: Reports blurry vision ENT ENT ED: Denies epistaxis or rhinorrhea Cardiovascular Cardiovascular: Denies chest pain or palpitations Respiratory/Chest Respiratory/Chest: Denies cough, dyspnea or dyspnea on exertion Gastrointestinal Gastrointestinal: Denies abdominal pain, diarrhea, nausea or vomiting Genitourinary Genitourinary ED: Denies dysuria, hematuria or urinary frequency Musculoskeletal Musculoskeletal: Reports neck pain; Denies back pain Integumentary Denies rash Neurologic Neurologic: Reports headache(s); Denies dizziness or weakness EXAM Physical Exam Const Vital Signs: 01/29/21 13:06 01/29/21 15:37 01/29/21 16:07 Temperature 97.8 F Temperature Source Temporal Pulse Rate 72 65 64 Respiratory Rate 14 14 15 Blood Pressure 117/54 L 94/58 L 102/62 Blood Pressure Mean 75 70 Pulse Ox 99 100 100 Oxygen Delivery Method Room Air Room Air Positive well nourished and well developed General Appearance ED: well developed and NAD HEENT Reports normocephalic, head/scalp atraumatic, TM's clear and moist mucous membranes Tympanic Membrane ED: Yes TM's clear Eyes PERRL and EOMs intact bilaterally Neck supple General: tenderness Chest Wall inspection of chest normal Resp normal respiratory effort and clear to auscultation bilaterally Auscultation: Negative for rales, rhonchi or wheezes Cardio regular rate and regular rhythm Rate: other Other Details: Mechanical valve click present. GI normal to inspection, nondistended, normoactive bowel sounds and non-tender Palpation: soft; Negative for guarding or rebound tenderness present Extremity normal to inspection General Extremety ED: Negative for edema or tenderness General Extremity: Negative for edema Neuro oriented x3, CN's II-XII intact bilaterally and no sensory deficits noted Sensorium / Orientation: alert Motor Exam: strength 5/5 throughout Psych mental status grossly normal Skin no rashes or lesions noted MDM MDM MDM Narrative Medical decision making narrative: Patient presents to the emergency department acute onset right-sided headache and neck pain. She did have blurred vision with this. Upon arrival to the emerge department vital signs within normal limits. She has no focal deficits appreciated physical exam. Given her past medical history will obtain CT scan of the head and neck. Basic lab work obtained along with INR. Patient CT imaging did not reveal any acute findings of the head or neck. No evidence of a dissection or bleed. Patient's INR is 2.8. She is starting to feel better throughout course of ED stay without any treatment. Given her history I did discuss hospitalization with her but she wants to go home. She states that she does have a family history of migraines but she does not have a personal history of this. Strict return precautions were reviewed with her including any worsening headache, neck pain, vision changes or weakness or loss of sensation in extremity. She understands and is agreeable this plan. She will be discharged home in stable condition. She is given neurology referral for follow-up. All questions were answered. She has remained neuro intact throughout ED stay. Lab Data Labs: Laboratory Results - last 24 hr 01/29/21 01/29/21 01/29/21 13:55 13:55 13:55 WBC 4.8 RBC 4.34 Hgb 14.0 Hct 41.5 MCV 95.6 MCH 32.3 H MCHC 33.7 RDW Std Deviation 41.5 RDW Coeff of Madalyn 11.9 Plt Count 176 MPV 9.9 Immature Gran % (Auto) 0.200 Neut % (Auto) 67.2 Lymph % (Auto) 21.4 Worth % (Auto) 9.8 Eos % (Auto) 0.4 Baso % (Auto) 1.0 Absolute Neuts (auto) 3.2 Absolute Lymphs (auto) 1.03 Nucleated RBC % 0 PT 28.3 H INR 2.8 Sodium 141 Potassium 4.0 Chloride 106 Carbon Dioxide 31.0 Anion Gap 4 L BUN 11 Creatinine 0.84 Estim Creat Clear Calc 81.78 Est GFR (MDRD) Af Amer 103 Est GFR (MDRD) Non-Af 85 BUN/Creatinine Ratio 13.1 Glucose 93 Calcium 8.8 Radiography Diagnostic Testing: Radiology Impression Head/Neck CTA 01/29/21 13:31 IMPRESSION: Negative head/brain CT without intravenous contrast. Electronically Signed: Deshaun Peterson MD ([place]) at 15:10 EDT , Service support , Discharge Plan Triage Chief Complaint: Headache ED Provider: Hermes Garcia Dx/Rx/DC Orders Clinical Impression: Headache Instructions: ED Headache Unspecified Prescriptions: No Action lamotrigine 100 MG tablet 50 mg PO BREAKFAST RF: 0 folic acid 0.8 MG tablet 2 mg PO BID RF: 0 lamotrigine 100 MG tablet 75 mg PO QHS RF: 0 warfarin [Jantoven] 3 MG tablet 7 mg PO TUFR RF: 0 warfarin 5 MG tablet 5 mg PO SUMOWETHSA RF: 0 codeine-guaifenesin 5 ML liquid 5 - 10 ml PO Q6H PRN PRN (Reason: Cough) Qty: 4 RF: 0 Primary Care Provider: Dane Escalante Referrals: Vidal Flannery MD [STAFF PHYSICIAN] - 3-5 Days Dane Escalante MD [Primary Care Provider] - Disposition Disposition: Home, Self Care Discharge Date/Time: 01/29/21 16:12
[2021-01-29 15:37] VITALS: BP 94/58; PULSE 65; RESP 14; O2SAT 100
[2021-01-29 16:07] VITALS: BP 102/62; PULSE 64; RESP 15; O2SAT 100
== END 2021-01-29 16:12 | disposition home or self-care (01) ==
PROVIDERS: Emergency Provider Emergency Medicine; PCP Internal Medicine
DX: R51.9 Headache, unspecified (principal); H53.8 Other visual disturbances; Q87.40 Marfan syndrome, unspecified; G40.909 Epilepsy, unspecified, not intractable, without status epilepticus; Z95.2 Presence of prosthetic heart valve; Z79.01 Long term (current) use of anticoagulants; Z79.899 Other long term (current) drug therapy
CPT/HCPCS: 70496; 70498; 80048; 85025; 85610; 99283; Q9967; A4216

== ENCOUNTER 2021-02-16 14:09 | Outpatient (RCR) | payer MEDICAID, SELFPAY | END 2021-02-16 18:00 | disposition home or self-care (01) | LOC: MTLAB 14:09 | PROVIDERS: Family Provider Internal Medicine; PCP Internal Medicine; Referring Provider Internal Medicine Cardiovascular Disease; Visit Provider Internal Medicine Cardiovascular Disease | DX: Z95.2 Presence of prosthetic heart valve (principal) | CPT/HCPCS: 36416; 85610 ==

== ENCOUNTER 2021-03-18 13:06 | Outpatient (RCR) | payer MEDICAID, SELFPAY ==
[2021-03-21 17:26] LABS: INR Fingerstick 2.5; Prothrombin Time Fingerstick 27.8 SEC (11.9-14.4)
== END 2021-03-18 18:00 | disposition home or self-care (01) ==
LOC: MTLAB 13:06
PROVIDERS: Family Provider Internal Medicine; PCP Internal Medicine; Referring Provider Internal Medicine Cardiovascular Disease; Visit Provider Internal Medicine Cardiovascular Disease
DX: Z95.2 Presence of prosthetic heart valve (principal)
CPT/HCPCS: 36416; 85610

== ENCOUNTER 2021-04-19 12:22 | Outpatient (RCR) | payer MEDICAID, SELFPAY ==
[2021-04-06 01:40] VITALS: BMI 19.4
[2021-04-20 08:20] LABS: INR Fingerstick 2.8; Prothrombin Time Fingerstick 31.6 SEC (11.9-14.4)
== END 2021-04-19 18:00 | disposition home or self-care (01) ==
LOC: MTLAB 12:22
PROVIDERS: Family Provider Internal Medicine; PCP Internal Medicine; Referring Provider Internal Medicine Cardiovascular Disease; Visit Provider Internal Medicine Cardiovascular Disease
DX: Z95.2 Presence of prosthetic heart valve (principal)
CPT/HCPCS: 36416; 85610

== ENCOUNTER 2021-05-26 12:34 | Outpatient (RCR) | payer MEDICAID, SELFPAY ==
[2021-05-06 02:19] VITALS: BMI 19.4
[2021-05-26 12:45] LABS: Prothrombin Time Fingerstick 22.5 SEC (11.9-14.4)
== END 2021-06-05 04:07 | disposition home or self-care (01) ==
LOC: MTLAB 12:34
PROVIDERS: Family Provider Internal Medicine; PCP Internal Medicine; Referring Provider Internal Medicine Cardiovascular Disease; Visit Provider Internal Medicine Cardiovascular Disease
DX: Z95.2 Presence of prosthetic heart valve (principal)
CPT/HCPCS: 36416; 85610

== ENCOUNTER 2021-06-27 11:16 | Outpatient (RCR) | payer MEDICAID, SELFPAY ==
[2021-06-05 04:07] VITALS: BMI 19.4
[2021-06-27 15:23] LABS: International Normalized Ratio 2.2; Prothrombin Time (Protime)PT. 24.1 SECONDS (11.7-14.9)
[2021-06-30 14:10] LABS: Lamotrigine (Lamictal) Level 4.6 ug/mL (2.0-20.0)
== END 2021-07-05 18:00 | disposition home or self-care (01) ==
LOC: MTLAB 11:16
PROVIDERS: Psychiatry & Neurology Neurology; Family Provider Internal Medicine; PCP Internal Medicine; Referring Provider Internal Medicine Cardiovascular Disease; Visit Provider Internal Medicine Cardiovascular Disease
DX: Z95.2 Presence of prosthetic heart valve (principal)
CPT/HCPCS: 36415; 82542; 85610

== ENCOUNTER 2021-06-29 21:31 | Emergency (ER) | payer MEDICAID, SELFPAY ==
[2021-06-29 21:32] VITALS: PULSE 81; RESP 16; TEMP 36.2; O2SAT 100; BMI 19.5
--- NOTE | 2021-06-29 22:50 | ED.VIS.DENTA ---
HPI History of Present Illness Chief Complaint: Dental Narrative Narrative: 31-year-old female presenting with dental pain. She is had this for about a week. She does not have any facial swelling. No trouble swallowing or breathing. She denies any drainage. She denies any trauma. Patient does admit to multiple dental caries. She made an appointment with her dentist for the seventh but has not been able to see him. They did not prescribe her any medications. [facility] Medical History (Updated 06/29/21 @ 22:[address] Jason Alfaro DO) Marfan syndrome Seizure disorder Home Medications folic acid 2 mg PO BID 10/08/13 [History Last Taken 11/19/16] lamotrigine 50 mg PO BREAKFAST 10/08/13 [History Last Taken 11/19/16] lamotrigine 75 mg PO QHS 08/29/14 [History Last Taken Unknown] warfarin [Coumadin ([facility])] 7 mg PO TUFR 11/23/16 [History Last Taken Unknown] codeine-guaifenesin 5 - 10 ml PO Q6H PRN PRN #4 oz 08/10/19 [Rx Last Taken Unknown] warfarin 5 mg PO SUMOWETHSA 08/10/19 [History Last Taken Unknown] oxycodone 5 mg PO Q6H PRN 3 Days #12 cap 06/29/21 [Rx Last Taken Unknown] Allergy/AdvReac Type Severity Reaction Status Date / Time adapalene [From Differin] Allergy Rash Verified 06/29/21 21:33 sulfamethoxazole Allergy Other Verified 06/29/21 21:33 [From Bactrim] trimethoprim [From Bactrim] Allergy Other Verified 06/29/21 21:33 Surgical History Mechanical heart valve present Social History Smoking Status: Never smoker ROS ROS ED Constitutional Constitutional ED: Denies chills, fever(s) or sweats Eyes Eyes: Denies blurry vision or change in vision ENT ENT ED: Reports other Details: Left maxillary dental pain ; Denies ear pain or sore throat Cardiovascular Cardiovascular: Denies chest pain, palpitations or racing heartbeat Respiratory/Chest Respiratory/Chest: Denies cough, dyspnea or sputum Gastrointestinal Gastrointestinal: Denies abdominal pain, constipation, diarrhea, nausea or vomiting Genitourinary Genitourinary ED: Denies dysuria, hematuria or urinary frequency Musculoskeletal Musculoskeletal: Denies arthralgias, myalgias or neck pain Integumentary Denies abscess, Abrasions or rash Neurologic Neurologic: Denies headache(s), paresthesias or weakness Psychiatric Psychiatric: Denies anxiety, depression, suicidal ideation or suicidal thoughts Endocrine Endocrinology: Denies polydipsia or polyuria EXAM Physical Exam Const Vital Signs: 06/29/21 21:32 Temperature 97.2 F L Temperature Source Temporal Pulse Rate 81 Respiratory Rate 16 Pulse Ox 100 Oxygen Delivery Method Room Air Positive well nourished General Appearance ED: NAD HEENT Teeth and Gingiva: abnormal tooth and associated gingiva Negative for dentin fractured, caries and poor dentition Eyes PERRL Neck no lymphadenopathy and supple Neuro oriented x3 and CN's II-XII intact bilaterally Sensorium / Orientation: alert Psych mental status grossly normal MDM MDM MDM Narrative Medical decision making narrative: Patient presenting with dental pain on left maxillary teeth. This is been present for about a week. She has an appointment with her dentist. On examination she has multiple dental caries throughout both sides of her mouth especially in the left upper maxillary region. There is no trauma. The buccal mucosa is normal. She is got no signs of Jah's angina. I will start her on Augmentin here in the ER. Given that she is on Coumadin I will not give her anti-inflammatories. Patient prescibed oxycodone for pain control due to medication limations. Impression: 1. Dental caries 2. Dental infection Discharge Plan Triage Chief Complaint: Dental ED Provider: Jason Alfaro Dx/Rx/DC Orders Instructions: ED Dental Cavity Prescriptions: New oxycodone 5 mg capsule 5 mg PO Q6H PRN (Reason: pain) 3 Days Qty: 12 RF: 0 No Action lamotrigine 100 MG tablet 50 mg PO BREAKFAST RF: 0 folic acid 0.8 MG tablet 2 mg PO BID RF: 0 lamotrigine 100 MG tablet 75 mg PO QHS RF: 0 warfarin [Jantoven] 3 MG tablet 7 mg PO TUFR RF: 0 warfarin 5 MG tablet 5 mg PO SUMOWETHSA RF: 0 codeine-guaifenesin 5 ML liquid 5 - 10 ml PO Q6H PRN PRN (Reason: Cough) Qty: 4 RF: 0 Primary Care Provider: Dane Escalante Referrals: Dane Escalante MD [Primary Care Provider] - Disposition Disposition: Home, Self Care
[2021-06-29] MEDS: Amox/Clavulanate 875 MG Tablet PO (22:59)
[2021-06-29] MEDS: oxyCODONE 5 MG Tablet PO (22:59)
== END 2021-06-29 23:05 | disposition home or self-care (01) ==
PROVIDERS: Emergency Provider Student in an Organized Health Care Education/Training Program; PCP Internal Medicine
DX: K04.7 Periapical abscess without sinus (principal); K02.9 Dental caries, unspecified; G40.909 Epilepsy, unspecified, not intractable, without status epilepticus; Z79.01 Long term (current) use of anticoagulants; Z79.899 Other long term (current) drug therapy
CPT/HCPCS: 99283

== ENCOUNTER 2021-07-25 12:42 | Outpatient (RCR) | payer MEDICAID, SELFPAY ==
[2021-07-06 03:16] VITALS: BMI 19.4
[2021-07-07 12:25] LABS: INR Fingerstick 2.5; Prothrombin Time Fingerstick 28.2 SEC (11.9-14.4)
[2021-07-26 14:41] LABS: INR Fingerstick 2.5; Prothrombin Time Fingerstick 27.8 SEC (11.9-14.4)
== END 2021-08-06 18:00 | disposition home or self-care (01) ==
LOC: MTLAB 12:42
PROVIDERS: Family Provider Internal Medicine; PCP Internal Medicine; Referring Provider Internal Medicine Cardiovascular Disease; Visit Provider Internal Medicine Cardiovascular Disease
DX: Z95.2 Presence of prosthetic heart valve (principal)
CPT/HCPCS: 36416; 85610

== ENCOUNTER 2021-08-23 13:17 | Outpatient (RCR) | payer MEDICAID, SELFPAY ==
[2021-08-07 03:51] VITALS: BMI 19.4
[2021-08-23 13:31] LABS: INR Fingerstick 2.9; Prothrombin Time Fingerstick 32.8 SEC (11.9-14.4)
== END 2021-09-05 18:00 | disposition home or self-care (01) ==
LOC: MTLAB 13:17
PROVIDERS: Family Provider Internal Medicine; PCP Internal Medicine; Referring Provider Internal Medicine Cardiovascular Disease; Visit Provider Internal Medicine Cardiovascular Disease
DX: Z95.2 Presence of prosthetic heart valve (principal)
CPT/HCPCS: 36416; 85610

== ENCOUNTER 2021-09-19 12:32 | Outpatient (RCR) | payer MEDICAID, SELFPAY ==
[2021-09-06 02:45] VITALS: BMI 19.4
[2021-09-15 12:06] LABS: INR Fingerstick 3.4; Prothrombin Time Fingerstick 38.8 SEC (11.9-14.4)
[2021-09-19 12:45] LABS: INR Fingerstick 2.4; Prothrombin Time Fingerstick 28.4 SEC (11.9-14.4)
== END 2021-09-19 18:00 | disposition home or self-care (01) ==
LOC: MTLAB 12:32
PROVIDERS: Family Provider Internal Medicine; PCP Internal Medicine; Referring Provider Internal Medicine Cardiovascular Disease; Visit Provider Internal Medicine Cardiovascular Disease
DX: Z95.2 Presence of prosthetic heart valve (principal)
CPT/HCPCS: 36416; 85610

== ENCOUNTER 2021-10-27 11:57 | Outpatient (RCR) | payer MEDICAID, SELFPAY ==
[2021-10-04 10:43] VITALS: BMI 19.4
[2021-10-17 12:45] LABS: INR Fingerstick 1.8; Prothrombin Time Fingerstick 21.5 SEC (11.7-14.9)
[2021-10-27 12:06] LABS: INR Fingerstick 1.9; Prothrombin Time Fingerstick 22.2 SEC (11.7-14.9)
== END 2021-11-03 18:00 | disposition home or self-care (01) ==
LOC: MTLAB 11:57
PROVIDERS: Family Provider Internal Medicine; PCP Internal Medicine; Referring Provider Internal Medicine Cardiovascular Disease; Visit Provider Internal Medicine Cardiovascular Disease
DX: Z95.2 Presence of prosthetic heart valve (principal)
CPT/HCPCS: 36416; 85610

== ENCOUNTER 2021-11-30 12:35 | Outpatient (RCR) | payer MEDICAID, SELFPAY ==
[2021-11-04 02:13] VITALS: BMI 19.4
[2021-11-24 09:05] LABS: INR Fingerstick 1.8; Prothrombin Time Fingerstick 21.3 SEC (11.7-14.9)
[2021-11-30 12:46] LABS: INR Fingerstick 2.7; Prothrombin Time Fingerstick 31.1 SEC (11.7-14.9)
== END 2021-11-30 18:00 | disposition home or self-care (01) ==
LOC: MTLAB 12:35
PROVIDERS: Family Provider Internal Medicine; PCP Internal Medicine; Referring Provider Internal Medicine Cardiovascular Disease; Visit Provider Internal Medicine Cardiovascular Disease
DX: Z95.2 Presence of prosthetic heart valve (principal)
CPT/HCPCS: 36416; 85610

== ENCOUNTER 2021-12-26 12:45 | Outpatient (RCR) | payer MEDICAID, SELFPAY ==
[2021-12-04 04:02] VITALS: BMI 19.4
[2021-12-26 15:01] LABS: INR Fingerstick 1.9; Prothrombin Time Fingerstick 22.8 SEC (11.7-14.9)
== END 2021-12-26 18:00 | disposition home or self-care (01) ==
LOC: MTLAB 12:45
PROVIDERS: Family Provider Internal Medicine; PCP Internal Medicine; Referring Provider Internal Medicine Cardiovascular Disease; Visit Provider Internal Medicine Cardiovascular Disease
DX: Z95.2 Presence of prosthetic heart valve (principal)
CPT/HCPCS: 36416; 85610

== ENCOUNTER 2022-01-26 13:49 | Outpatient (RCR) | payer MEDICAID, SELFPAY ==
[2022-01-04 01:40] VITALS: BMI 19.4
[2022-01-26 14:01] LABS: INR Fingerstick 2.8; Prothrombin Time Fingerstick 32.6 SEC (11.7-14.9)
== END 2022-02-02 16:00 | disposition home or self-care (01) ==
LOC: MTLAB 13:49
PROVIDERS: Family Provider Internal Medicine; PCP Internal Medicine; Referring Provider Internal Medicine Cardiovascular Disease; Visit Provider Internal Medicine Cardiovascular Disease
DX: Z95.2 Presence of prosthetic heart valve (principal)
CPT/HCPCS: 36416; 85610

== ENCOUNTER 2022-03-02 10:43 | Outpatient (RCR) | payer MEDICAID, SELFPAY ==
[2022-02-03 10:10] VITALS: BMI 19.4
[2022-03-02 14:21] LABS: Prothrombin Time Fingerstick 32.8 SEC (11.7-14.9)
[2022-03-02 14:22] LABS: INR Fingerstick 2.9
== END 2022-03-05 03:44 | disposition home or self-care (01) ==
LOC: MTLAB 10:43
PROVIDERS: Family Provider Internal Medicine; PCP Internal Medicine; Referring Provider Internal Medicine Cardiovascular Disease; Visit Provider Internal Medicine Cardiovascular Disease
DX: Z95.2 Presence of prosthetic heart valve (principal)
CPT/HCPCS: 36416; 85610

== ENCOUNTER 2022-03-31 12:31 | Outpatient (RCR) | payer MEDICAID, SELFPAY ==
[2022-03-05 03:44] VITALS: BMI 19.4
[2022-03-31 12:45] LABS: INR Fingerstick 2.5
== END 2022-03-31 18:00 | disposition home or self-care (01) ==
LOC: LAB 12:31
PROVIDERS: Family Provider Internal Medicine; PCP Internal Medicine; Referring Provider Internal Medicine Cardiovascular Disease; Visit Provider Internal Medicine Cardiovascular Disease
DX: Z95.2 Presence of prosthetic heart valve (principal)
CPT/HCPCS: 36416; 85610

== ENCOUNTER 2022-04-27 13:49 | Outpatient (RCR) | payer MEDICAID, SELFPAY ==
[2022-04-06 00:31] VITALS: BMI 19.4
[2022-04-27 14:30] LABS: INR Fingerstick 3.1; Prothrombin Time Fingerstick 35.3 SEC (11.7-14.9)
== END 2022-04-27 18:00 | disposition home or self-care (01) ==
LOC: MTLAB 13:49
PROVIDERS: Family Provider Internal Medicine; PCP Internal Medicine; Referring Provider Internal Medicine Cardiovascular Disease; Visit Provider Internal Medicine Cardiovascular Disease
DX: Z95.2 Presence of prosthetic heart valve (principal)
CPT/HCPCS: 36416; 85610

== ENCOUNTER 2022-05-30 11:52 | Outpatient (RCR) | payer MEDICAID, SELFPAY ==
[2022-05-06 04:17] VITALS: BMI 19.4
[2022-05-30 12:00] LABS: INR Fingerstick 1.9; Prothrombin Time Fingerstick 22.7 SEC (11.7-14.9)
== END 2022-05-30 18:00 | disposition home or self-care (01) ==
LOC: MTLAB 11:52
PROVIDERS: Family Provider Internal Medicine; PCP Internal Medicine; Referring Provider Internal Medicine Cardiovascular Disease; Visit Provider Internal Medicine Cardiovascular Disease
DX: Z95.2 Presence of prosthetic heart valve (principal)
CPT/HCPCS: 36416; 85610

== ENCOUNTER 2022-06-30 12:45 | Outpatient (RCR) | payer MEDICAID, SELFPAY ==
[2022-06-06 13:27] VITALS: BMI 19.4
[2022-06-30 12:56] LABS: INR Fingerstick 2.1; Prothrombin Time Fingerstick 24.8 SEC (11.7-14.9)
== END 2022-07-05 18:00 | disposition home or self-care (01) ==
LOC: MTLAB 12:45
PROVIDERS: Family Provider Internal Medicine; PCP Internal Medicine; Referring Provider Internal Medicine Cardiovascular Disease; Visit Provider Internal Medicine Cardiovascular Disease
DX: Z95.2 Presence of prosthetic heart valve (principal)
CPT/HCPCS: 36416; 85610

== ENCOUNTER 2022-07-25 12:42 | Outpatient (RCR) | payer MEDICAID, SELFPAY ==
[2022-07-06 02:53] VITALS: BMI 19.4
[2022-07-25 12:50] LABS: INR Fingerstick 1.9; Prothrombin Time Fingerstick 23.1 SEC (11.7-14.9)
== END 2022-07-25 18:00 | disposition home or self-care (01) ==
LOC: MTLAB 12:42
PROVIDERS: Family Provider Internal Medicine; PCP Internal Medicine; Referring Provider Internal Medicine Cardiovascular Disease; Visit Provider Internal Medicine Cardiovascular Disease
DX: Z95.2 Presence of prosthetic heart valve (principal)
CPT/HCPCS: 36416; 85610

== ENCOUNTER 2022-08-31 10:59 | Outpatient (RCR) | payer MEDICAID, SELFPAY ==
[2022-08-06 06:44] VITALS: BMI 19.4
[2022-08-31 14:50] LABS: INR Fingerstick 2.2; Prothrombin Time Fingerstick 26.1 SEC (11.7-14.9)
== END 2022-08-31 12:59 | disposition home or self-care (01) ==
LOC: MTLAB 10:59
PROVIDERS: Family Provider Internal Medicine; PCP Internal Medicine; Referring Provider Internal Medicine Cardiovascular Disease; Visit Provider Internal Medicine Cardiovascular Disease
DX: Z95.2 Presence of prosthetic heart valve (principal)
CPT/HCPCS: 36416; 85610

== ENCOUNTER 2022-09-29 13:04 | Outpatient (RCR) | payer MEDICAID, SELFPAY ==
[2022-09-06 07:29] VITALS: BMI 19.4
[2022-09-29 13:51] LABS: INR Fingerstick 2.5; Prothrombin Time Fingerstick 28.9 SEC (11.7-14.9)
== END 2022-09-29 18:00 | disposition home or self-care (01) ==
LOC: MTLAB 13:04
PROVIDERS: Family Provider Internal Medicine; PCP Internal Medicine; Referring Provider Internal Medicine Cardiovascular Disease; Visit Provider Internal Medicine Cardiovascular Disease
DX: Z95.2 Presence of prosthetic heart valve (principal)
CPT/HCPCS: 36416; 85610

== ENCOUNTER 2022-10-27 13:22 | Outpatient (RCR) | payer MEDICAID, SELFPAY ==
[2022-10-03 23:36] VITALS: BMI 19.4
[2022-10-27 13:40] LABS: INR Fingerstick 2.3; Prothrombin Time Fingerstick 26.4 SEC (11.7-14.9)
== END 2022-11-03 21:09 | disposition home or self-care (01) ==
LOC: MTLAB 13:22
PROVIDERS: Family Provider Internal Medicine; PCP Internal Medicine; Referring Provider Internal Medicine Cardiovascular Disease; Visit Provider Internal Medicine Cardiovascular Disease
DX: Z95.2 Presence of prosthetic heart valve (principal)
CPT/HCPCS: 36416; 85610

== ENCOUNTER 2022-11-28 13:14 | Outpatient (RCR) | payer MEDICAID, SELFPAY ==
[2022-11-03 21:09] VITALS: BMI 19.4
[2022-11-28 13:30] LABS: INR Fingerstick 2.2; Prothrombin Time Fingerstick 24.5 SEC (11.7-14.9)
== END 2022-12-03 01:29 | disposition home or self-care (01) ==
LOC: LAB 13:14
PROVIDERS: Family Provider Internal Medicine; PCP Internal Medicine; Referring Provider Internal Medicine Cardiovascular Disease; Visit Provider Internal Medicine Cardiovascular Disease
DX: Z95.2 Presence of prosthetic heart valve (principal)
CPT/HCPCS: 36416; 85610

== ENCOUNTER 2022-12-28 10:50 | Outpatient (RCR) | payer MEDICAID, SELFPAY ==
[2022-12-03 01:30] VITALS: BMI 19.4
[2022-12-22 10:41] LABS: INR Fingerstick 1.8; Prothrombin Time Fingerstick 20.4 SEC (11.7-14.9)
[2022-12-28 11:20] LABS: INR Fingerstick 2.2; Prothrombin Time Fingerstick 23.8 SEC (11.7-14.9)
== END 2022-12-28 11:50 | disposition home or self-care (01) ==
LOC: MTLAB 10:50
PROVIDERS: Family Provider Internal Medicine; PCP Internal Medicine; Referring Provider Internal Medicine Cardiovascular Disease; Visit Provider Internal Medicine Cardiovascular Disease
DX: Z95.2 Presence of prosthetic heart valve (principal)
CPT/HCPCS: 36416; 85610

== ENCOUNTER 2023-01-29 15:10 | Outpatient (RCR) | payer MEDICAID, SELFPAY ==
[2023-01-04 08:30] VITALS: BMI 19.4
[2023-01-29 15:32] LABS: INR Fingerstick 2.3; Prothrombin Time Fingerstick 25.1 SEC (11.7-14.9)
== END 2023-01-29 18:00 | disposition home or self-care (01) ==
LOC: LAB 15:10
PROVIDERS: Family Provider Internal Medicine; PCP Internal Medicine; Referring Provider Internal Medicine Cardiovascular Disease; Visit Provider Internal Medicine Cardiovascular Disease
DX: Z95.2 Presence of prosthetic heart valve (principal)
CPT/HCPCS: 36416; 85610

== ENCOUNTER 2023-03-01 16:02 | Outpatient (RCR) | payer MEDICAID, SELFPAY ==
[2023-02-03 01:51] VITALS: BMI 19.4
[2023-03-01 16:11] LABS: INR Fingerstick 2.3; Prothrombin Time Fingerstick 25.5 SEC (11.7-14.9)
== END 2023-03-05 18:00 | disposition home or self-care (01) ==
LOC: LAB 16:02
PROVIDERS: Family Provider Internal Medicine; PCP Internal Medicine; Referring Provider Internal Medicine Cardiovascular Disease; Visit Provider Internal Medicine Cardiovascular Disease
DX: Z95.2 Presence of prosthetic heart valve (principal)
CPT/HCPCS: 36416; 85610

== ENCOUNTER 2023-04-04 15:53 | Outpatient (RCR) | payer MEDICAID, SELFPAY ==
[2023-03-06 01:53] VITALS: BMI 19.4
[2023-04-04 16:01] LABS: INR Fingerstick 3.3; Prothrombin Time Fingerstick 34.9 SEC (11.7-14.9)
== END 2023-04-04 18:00 | disposition home or self-care (01) ==
LOC: LAB 15:53
PROVIDERS: Family Provider Internal Medicine; PCP Internal Medicine; Referring Provider Internal Medicine Cardiovascular Disease; Visit Provider Internal Medicine Cardiovascular Disease
DX: I35.9 Nonrheumatic aortic valve disorder, unspecified
CPT/HCPCS: 36416; 85610

== ENCOUNTER 2023-04-26 11:28 | Outpatient (RCR) | payer MEDICAID, SELFPAY ==
[2023-04-05 23:43] VITALS: BMI 19.4
[2023-04-26 11:36] LABS: INR Fingerstick 2.6; Prothrombin Time Fingerstick 27.8 SEC (11.7-14.9)
== END 2023-04-26 18:00 | disposition home or self-care (01) ==
LOC: MTLAB 11:28
PROVIDERS: Family Provider Internal Medicine; PCP Internal Medicine; Referring Provider Internal Medicine Cardiovascular Disease; Visit Provider Internal Medicine Cardiovascular Disease
DX: Z95.2 Presence of prosthetic heart valve (principal)
CPT/HCPCS: 36416; 85610

== ENCOUNTER 2023-06-04 15:54 | Outpatient (RCR) | payer MEDICAID, SELFPAY ==
[2023-05-06 05:18] VITALS: BMI 19.4
[2023-06-04 16:00] LABS: INR Fingerstick 1.9; Prothrombin Time Fingerstick 21.2 SEC (11.7-14.9)
== END 2023-06-04 18:00 | disposition home or self-care (01) ==
LOC: LAB 15:54
PROVIDERS: Family Provider Internal Medicine; PCP Internal Medicine; Referring Provider Internal Medicine Cardiovascular Disease; Visit Provider Internal Medicine Cardiovascular Disease
DX: Z95.2 Presence of prosthetic heart valve (principal); I35.9 Nonrheumatic aortic valve disorder, unspecified
CPT/HCPCS: 36416; 85610

== ENCOUNTER 2023-07-02 15:26 | Outpatient (RCR) | payer MEDICAID, SELFPAY ==
[2023-06-05 22:50] VITALS: BMI 19.4
[2023-07-02 15:35] LABS: Prothrombin Time Fingerstick 32.1 SEC (11.7-14.9)
== END 2023-07-05 18:00 | disposition home or self-care (01) ==
LOC: LAB 15:26
PROVIDERS: Family Provider Internal Medicine; PCP Internal Medicine; Referring Provider Internal Medicine Cardiovascular Disease; Visit Provider Internal Medicine Cardiovascular Disease
DX: I35.9 Nonrheumatic aortic valve disorder, unspecified
CPT/HCPCS: 36416; 85610

== ENCOUNTER 2023-08-03 08:21 | Outpatient (RCR) | payer MEDICAID, SELFPAY ==
[2023-07-06 04:10] VITALS: BMI 19.4
[2023-08-03 08:33] LABS: INR Fingerstick 3.9; Prothrombin Time Fingerstick 41.5 SEC (11.7-14.9)
[2023-08-03 10:02] LABS: International Normalized Ratio 3.4; Prothrombin Time (Protime)PT. 34.6 SECONDS (11.7-14.9)
== END 2023-08-05 18:00 | disposition home or self-care (01) ==
LOC: MTLAB 08:21
PROVIDERS: Family Provider Internal Medicine; PCP Internal Medicine; Referring Provider Internal Medicine Cardiovascular Disease; Visit Provider Internal Medicine Cardiovascular Disease
DX: I35.9 Nonrheumatic aortic valve disorder, unspecified
CPT/HCPCS: 36415; 36416; 85610

== ENCOUNTER 2023-08-30 12:13 | Outpatient (RCR) | payer MEDICAID, SELFPAY ==
[2023-08-05 22:13] VITALS: BMI 19.4
[2023-08-30 12:22] LABS: INR Fingerstick 3.1
== END 2023-08-30 18:00 | disposition home or self-care (01) ==
LOC: LAB 12:13
PROVIDERS: Family Provider Internal Medicine; PCP Internal Medicine; Referring Provider Internal Medicine Cardiovascular Disease; Visit Provider Internal Medicine Cardiovascular Disease
DX: I35.9 Nonrheumatic aortic valve disorder, unspecified
CPT/HCPCS: 36416; 85610

== ENCOUNTER → 2023-10-03 | Outpatient (CLI) | payer MEDICAID, SELFPAY ==
[2023-10-03 16:43] LABS: Absolute Lymphocyte Count 1.33 X10^3/uL (0.83-4.51); Absolute Neutrophil Count 3.9 X10^3/uL (2.0-7.7); Basophil# 0.05 X10^3/uL; Basophil% 0.9 % (0-1); Eosinophil# 0.03 X10^3/uL; Eosinophils% 0.5 % (0-5); Hematocrit 40.7 % (37-47); Hemoglobin 13.8 g/dL (12.0-15.0); Lymphocyte # 1.33 X10^3/ul (0.83-4.51); Lymphocyte % 23.1 % (19-41); Mean Corp Hgb Conc 33.9 g/dL (32-36); Mean Corpuscular Hgb 31.9 pg (27.0-32.0); Mean Platelet Vol. 9.8 fl (6.2-12.0); Monocyte# 0.47 X10^3/uL; Monocyte% 8.1 % (0-10); NRBC Flagged by Analyzer 0 % (0-5); Neutrophil # 3.88 X10^3/uL (2.7-7.7); Neutrophil % 67.2 % (47-70); Platelet Count 190 K/mm3 (150-450); RBC Distribution Width CV 11.4 % (11.6-14.6); RBC Distribution Width SD 38.9 fl (35.1-43.9); Red Blood Count 4.33 M/mm3 (4.2-5.4); White Blood Count 5.8 K/mm3 (4.4-11.0)
[2023-10-03 17:02] LABS: ALB/GLOB Ratio 1.1 RATIO (0.9-2.4); AST(SGOT) 17 U/L (15-37); Alanine Aminotransfer ALT/SGPT 23 U/L (13-56); Albumin, Serum 4.2 g/dL (3.2-5.0); Alkaline Phosphatase 79 U/L (45-117); Anion Gap 5 (5-15); BUN 16 mg/dL (7-18); BUN/Creat Ratio 21.9 RATIO (10-20); Calcium,Total 8.9 mg/dL (8.5-10.1); Chloride 106 mmol/L (98-107); Creatinine, Serum 0.73 mg/dL (0.55-1.02); EST Glomerular Filtration Rate 98 mL/min (>60); Est Glom Filt Rate - Afr Amer 118 mL/min (>60); Globulin 3.8 g/dL (2.2-4.2); Glucose 93 mg/dL (74-106); Potassium 4.4 mmol/L (3.5-5.1); Sodium Level 139 mmol/L (136-145)
[2023-10-06 15:09] LABS: Lamotrigine (Lamictal) Level 3.7 ug/mL (2.0-20.0)
== END | disposition home or self-care (01) ==
LOC: LAB 15:53
PROVIDERS: PCP Internal Medicine; Referring Provider Psychiatry & Neurology Neurology; Visit Provider Psychiatry & Neurology Neurology
DX: G40.909 Epilepsy, unspecified, not intractable, without status epilepticus (principal)
CPT/HCPCS: 36415; 80053; 82542; 85025

== ENCOUNTER 2023-10-29 15:46 | Outpatient (RCR) | payer MEDICAID, SELFPAY ==
[2023-09-05 23:00] VITALS: BMI 19.4
[2023-10-31 09:32] LABS: INR Fingerstick 2.5; Prothrombin Time Fingerstick 25.6 SEC (11.7-14.9)
== END 2023-11-04 01:31 | disposition home or self-care (01) ==
LOC: LAB 15:46
PROVIDERS: Family Provider Internal Medicine; PCP Internal Medicine; Referring Provider Internal Medicine Cardiovascular Disease; Visit Provider Internal Medicine Cardiovascular Disease
DX: I35.9 Nonrheumatic aortic valve disorder, unspecified
CPT/HCPCS: 36416; 85610

== ENCOUNTER 2023-12-03 16:04 | Outpatient (RCR) | payer MEDICAID, SELFPAY ==
[2023-11-04 01:32] VITALS: BMI 19.4
[2023-12-03 16:20] LABS: INR Fingerstick 2.6; Prothrombin Time Fingerstick 28.2 SEC (11.7-14.9)
== END 2023-12-04 21:51 | disposition home or self-care (01) ==
LOC: MTLAB 16:04
PROVIDERS: Family Provider Internal Medicine; PCP Internal Medicine; Referring Provider Internal Medicine Cardiovascular Disease; Visit Provider Internal Medicine Cardiovascular Disease
DX: I35.9 Nonrheumatic aortic valve disorder, unspecified
CPT/HCPCS: 36416; 85610

== ENCOUNTER 2024-01-02 15:58 | Outpatient (RCR) | payer MEDICAID, SELFPAY ==
[2023-12-04 21:52] VITALS: BMI 19.4
[2024-01-02 16:37] LABS: INR Fingerstick 1.9; Prothrombin Time Fingerstick 20.5 SEC (11.7-14.9)
[2024-01-02 17:24] LABS: International Normalized Ratio 2.1; Prothrombin Time (Protime)PT. 23.7 SECONDS (11.7-14.9)
== END 2024-01-02 18:00 | disposition home or self-care (01) ==
LOC: LAB 15:58
PROVIDERS: Family Provider Internal Medicine; PCP Internal Medicine; Referring Provider Internal Medicine Cardiovascular Disease; Visit Provider Internal Medicine Cardiovascular Disease
DX: I35.9 Nonrheumatic aortic valve disorder, unspecified
CPT/HCPCS: 36415; 36416; 85610

== ENCOUNTER 2024-02-01 15:48 | Outpatient (RCR) | payer MEDICAID, SELFPAY ==
[2024-01-07 08:54] VITALS: BMI 19.4
[2024-02-01 15:57] LABS: INR Fingerstick 2.1; Prothrombin Time Fingerstick 22.1 SEC (11.7-14.9)
== END 2024-02-01 18:00 | disposition home or self-care (01) ==
LOC: LAB 15:48
PROVIDERS: Family Provider Internal Medicine; PCP Internal Medicine; Referring Provider Internal Medicine Cardiovascular Disease; Visit Provider Internal Medicine Cardiovascular Disease
DX: I35.9 Nonrheumatic aortic valve disorder, unspecified
CPT/HCPCS: 36416; 85610

== ENCOUNTER 2024-03-05 15:27 | Outpatient (RCR) | payer MEDICAID, SELFPAY ==
[2024-02-04 04:09] VITALS: BMI 19.4
[2024-03-05 15:47] LABS: INR Fingerstick 2.2; Prothrombin Time Fingerstick 22.7 SEC (11.7-14.9)
== END 2024-03-05 18:00 | disposition home or self-care (01) ==
LOC: LAB 15:27
PROVIDERS: Family Provider Internal Medicine; PCP Internal Medicine; Referring Provider Internal Medicine Cardiovascular Disease; Visit Provider Internal Medicine Cardiovascular Disease
DX: I35.9 Nonrheumatic aortic valve disorder, unspecified; Z95.2 Presence of prosthetic heart valve
CPT/HCPCS: 36416; 85610

== ENCOUNTER 2024-03-27 12:31 | Outpatient (RCR) | payer MEDICAID, SELFPAY ==
[2024-03-05 23:04] VITALS: BMI 19.4
[2024-03-27 12:38] LABS: INR Fingerstick 1.7; Prothrombin Time Fingerstick 18.7 SEC (11.7-14.9)
== END 2024-03-27 18:00 | disposition home or self-care (01) ==
LOC: LAB 12:31
PROVIDERS: Family Provider Internal Medicine; PCP Internal Medicine; Referring Provider Internal Medicine Cardiovascular Disease; Visit Provider Internal Medicine Cardiovascular Disease
DX: I35.9 Nonrheumatic aortic valve disorder, unspecified
CPT/HCPCS: 36416; 85610

== ENCOUNTER 2024-04-14 10:51 | Outpatient (RCR) | payer MEDICAID, SELFPAY ==
[2024-04-06 03:02] VITALS: BMI 19.4
[2024-04-14 11:20] LABS: Prothrombin Time Fingerstick 21.1 SEC (11.7-14.9)
== END 2024-04-14 18:00 | disposition home or self-care (01) ==
LOC: LAB 10:51
PROVIDERS: Family Provider Internal Medicine; PCP Internal Medicine; Referring Provider Internal Medicine Cardiovascular Disease; Visit Provider Internal Medicine Cardiovascular Disease
DX: I35.9 Nonrheumatic aortic valve disorder, unspecified
CPT/HCPCS: 36416; 85610

== ENCOUNTER 2024-06-05 11:16 | Outpatient (RCR) | payer MEDICAID, SELFPAY ==
[2024-05-06 04:42] VITALS: BMI 19.4
[2024-06-05 11:28] LABS: Prothrombin Time Fingerstick 22.5 SEC (11.7-14.9)
== END 2024-06-05 18:00 | disposition home or self-care (01) ==
LOC: LAB 11:16
PROVIDERS: Family Provider Internal Medicine; PCP Internal Medicine; Referring Provider Internal Medicine Cardiovascular Disease; Visit Provider Internal Medicine Cardiovascular Disease
DX: I35.9 Nonrheumatic aortic valve disorder, unspecified
CPT/HCPCS: 36416; 85610

== ENCOUNTER 2024-06-16 12:15 | Emergency (ER) | payer MEDICAID, SELFPAY ==
[2024-06-16 12:16] VITALS: BP 104/80; PULSE 78; RESP 16; TEMP 36.8; O2SAT 99; BMI 19.3
[2024-06-16 13:49] LABS: Hematocrit 38.7 % (37-47); Hemoglobin 13.8 g/dL (12.0-15.0); Mean Corp Hgb Conc 35.7 g/dL (32-36); Mean Corpuscular Hgb 32.8 pg (27.0-32.0); Mean Corpuscular Volume 91.9 fL (81-99); Mean Platelet Vol. 9.5 fl (6.2-12.0); Platelet Count 181 K/mm3 (150-450); RBC Distribution Width CV 11.9 % (11.6-14.6); RBC Distribution Width SD 39.6 fl (35.1-43.9); Red Blood Count 4.21 M/mm3 (4.2-5.4); White Blood Count 3.2 K/mm3 (4.4-11.0)
[2024-06-16 13:57] LABS: International Normalized Ratio 2.6
[2024-06-16 13:58] LABS: Partial Thromboplast Time 39.7 Seconds (24.1-36.2)
[2024-06-16 14:03] LABS: Anion Gap 6 (5-15); BUN 13 mg/dL (7-18); BUN/Creat Ratio 17.4 RATIO (10-20); Calcium,Total 8.9 mg/dL (8.5-10.1); Chloride 106 mmol/L (98-107); Creatinine, Serum 0.75 mg/dL (0.55-1.02); EST Glomerular Filtration Rate 95 mL/min (>60); Est Glom Filt Rate - Afr Amer 115 mL/min (>60); Estimated Creatinine Clearance 88.62 ml/min; Glucose 101 mg/dL (74-106); Sodium Level 140 mmol/L (136-145)
[2024-06-16 14:14] VITALS: BP 93/61; PULSE 81; RESP 19; O2SAT 99
[2024-06-16 15:12] VITALS: BP 93/54; PULSE 75; RESP 18; TEMP 36.6; O2SAT 100
== END 2024-06-16 15:13 | disposition home or self-care (01) ==
PROVIDERS: Emergency Provider Surgery; PCP Internal Medicine; Visit Provider Surgery
DX: R51.9 Headache, unspecified (principal); Z87.898 Personal history of other specified conditions; Z95.2 Presence of prosthetic heart valve; Z79.01 Long term (current) use of anticoagulants
CPT/HCPCS: 70496; 70498; 80048; 85027; 85610; 85730; 99283; Q9967

== ENCOUNTER 2024-07-24 14:13 | Outpatient (RCR) | payer MEDICAID, SELFPAY ==
[2024-06-05 21:22] VITALS: BMI 19.4
[2024-07-24 14:42] LABS: Prothrombin Time Fingerstick 22.2 SEC (11.7-14.9)
== END 2024-07-24 18:00 | disposition home or self-care (01) ==
LOC: LAB 14:13
PROVIDERS: Family Provider Internal Medicine; PCP Internal Medicine; Referring Provider Internal Medicine Cardiovascular Disease; Visit Provider Internal Medicine Cardiovascular Disease
DX: Z95.2 Presence of prosthetic heart valve (principal)
CPT/HCPCS: 36416; 85610

== ENCOUNTER 2024-09-05 16:13 | Outpatient (RCR) | payer MEDICAID, SELFPAY ==
[2024-08-06 04:52] VITALS: BMI 19.4
[2024-09-05 16:30] LABS: INR Fingerstick 2.4; Prothrombin Time Fingerstick 24.5 SEC (11.7-14.9)
== END 2024-09-05 18:00 | disposition home or self-care (01) ==
LOC: LAB 16:13
PROVIDERS: Family Provider Internal Medicine; PCP Internal Medicine; Referring Provider Internal Medicine Cardiovascular Disease; Visit Provider Internal Medicine Cardiovascular Disease
DX: Z95.2 Presence of prosthetic heart valve (principal)
CPT/HCPCS: 36416; 85610

== ENCOUNTER 2024-10-03 16:07 | Outpatient (RCR) | payer MEDICAID, SELFPAY ==
[2024-09-05 21:29] VITALS: BMI 19.4
[2024-10-09 10:11] LABS: INR Fingerstick 2.9; Prothrombin Time Fingerstick 30.6 SEC (11.7-14.9)
== END 2024-10-03 18:00 | disposition home or self-care (01) ==
LOC: LAB 16:07
PROVIDERS: Family Provider Internal Medicine; PCP Internal Medicine; Referring Provider Internal Medicine Cardiovascular Disease; Visit Provider Internal Medicine Cardiovascular Disease
DX: I35.9 Nonrheumatic aortic valve disorder, unspecified
CPT/HCPCS: 36416; 85610

== ENCOUNTER 2024-10-14 12:29 | Outpatient (RCR) | payer MEDICAID, SELFPAY ==
[2024-10-04 07:41] VITALS: BMI 19.4
[2024-10-14 12:54] LABS: Absolute Lymphocyte Count 1.06 X10^3/uL (0.83-4.51); Absolute Neutrophil Count 4.1 X10^3/uL (2.0-7.7); Basophil# 0.04 X10^3/uL; Basophil% 0.7 % (0-1); Eosinophil# 0.03 X10^3/uL; Eosinophils% 0.5 % (0-5); Hematocrit 37.5 % (37-47); Hemoglobin 13.2 g/dL (12.0-15.0); Lymphocyte # 1.06 X10^3/ul (0.83-4.51); Lymphocyte % 18.6 % (19-41); Mean Corp Hgb Conc 35.2 g/dL (32-36); Mean Corpuscular Hgb 32.5 pg (27.0-32.0); Mean Corpuscular Volume 92.4 fL (81-99); Monocyte# 0.45 X10^3/uL; Monocyte% 7.9 % (0-10); NRBC Flagged by Analyzer 0 % (0-5); Neutrophil # 4.09 X10^3/uL (2.7-7.7); Neutrophil % 71.9 % (47-70); Platelet Count 157 K/mm3 (150-450); RBC Distribution Width CV 11.7 % (11.6-14.6); RBC Distribution Width SD 39.8 fl (35.1-43.9); Red Blood Count 4.06 M/mm3 (4.2-5.4); White Blood Count 5.7 K/mm3 (4.4-11.0)
[2024-10-14 13:09] LABS: International Normalized Ratio 2.1; Prothrombin Time (Protime)PT. 24.3 SECONDS (11.7-14.9)
[2024-10-14 13:51] LABS: ALB/GLOB Ratio 1.5 RATIO (0.9-2.4); AST(SGOT) 18 U/L (<=31); Alanine Aminotransfer ALT/SGPT 13 U/L (<=34); Albumin, Serum 4.6 g/dL (3.5-5.0); Alkaline Phosphatase 52 U/L (35-104); Anion Gap 11 (5-15); BUN 14 mg/dL (4-19); BUN/Creat Ratio 17.5 RATIO (10-20); Calcium,Total 9.3 mg/dL (7.6-11.0); Chloride 103 mmol/L (98-108); Creatinine, Serum 0.81 mg/dL (0.70-1.20); EST Glomerular Filtration Rate 98 (>60); Glucose 101 mg/dL (70-99); Potassium 3.9 mmol/L (3.3-5.1); Protein, Total 7.6 g/dL (5.9-8.4); Sodium Level 137 mmol/L (133-145); Total Bilirubin 0.63 mg/dL (0.00-1.30)
[2024-10-16 17:07] LABS: Lamotrigine (Lamictal) Level 6.9 ug/mL (2.0-20.0)
== END 2024-10-14 18:00 | disposition home or self-care (01) ==
LOC: LAB 12:29
PROVIDERS: Family Provider Internal Medicine; PCP Internal Medicine; Referring Provider Internal Medicine Cardiovascular Disease; Visit Provider Internal Medicine Cardiovascular Disease
DX: Z95.2 Presence of prosthetic heart valve (principal); G40.909 Epilepsy, unspecified, not intractable, without status epilepticus
CPT/HCPCS: 36415; 80053; 82542; 85025; 85610

== ENCOUNTER 2024-12-12 16:21 | Outpatient (RCR) | payer MEDICAID, SELFPAY ==
[2024-11-03 22:52] VITALS: BMI 19.4
[2024-12-04 13:09] LABS: INR Fingerstick 3.9; Prothrombin Time Fingerstick 39.3 SEC (11.7-14.9)
[2024-12-12 17:59] LABS: Absolute Neutrophil Count 5.3 X10^3/uL (2.0-7.7); Basophil# 0.07 X10^3/uL; Eosinophil# 0.02 X10^3/uL; Eosinophils% 0.3 % (0-5); Hematocrit 38.8 % (37-47); Hemoglobin 13.4 g/dL (12.0-15.0); Lymphocyte % 14.3 % (19-41); Mean Corp Hgb Conc 34.5 g/dL (32-36); Mean Corpuscular Hgb 31.8 pg (27.0-32.0); Mean Corpuscular Volume 92.2 fL (81-99); Mean Platelet Vol. 9.8 fl (6.2-12.0); Monocyte# 0.55 X10^3/uL; Monocyte% 7.9 % (0-10); NRBC Flagged by Analyzer 0 % (0-5); Neutrophil # 5.34 X10^3/uL (2.7-7.7); Neutrophil % 76.4 % (47-70); Platelet Count 211 K/mm3 (150-450); RBC Distribution Width SD 40.3 fl (35.1-43.9); Red Blood Count 4.21 M/mm3 (4.2-5.4)
[2024-12-12 18:07] LABS: ALB/GLOB Ratio 1.3 RATIO (0.9-2.4); AST(SGOT) 20 U/L (<=31); Alanine Aminotransfer ALT/SGPT 16 U/L (<=34); Albumin, Serum 4.7 g/dL (3.5-5.0); Alkaline Phosphatase 90 U/L (35-104); Anion Gap 10 (5-15); BUN 9 mg/dL (4-19); BUN/Creat Ratio 11.3 RATIO (10-20); Calcium,Total 9.5 mg/dL (7.6-11.0); Carbon Dioxide 24.5 mmol/L (21.0-32.0); Chloride 103 mmol/L (98-108); Creatinine, Serum 0.77 mg/dL (0.70-1.20); EST Glomerular Filtration Rate 104 (>60); Globulin 3.5 g/dL (2.2-4.2); Glucose 89 mg/dL (70-99); Pro- Brain NATRIURETIC PEPTIDE 280 pg/mL (<=450); Protein, Total 8.2 g/dL (5.9-8.4); Sodium Level 138 mmol/L (133-145); Total Bilirubin 0.47 mg/dL (0.00-1.30)
[2024-12-12 18:18] LABS: Prothrombin Time (Protime)PT. 31.7 SECONDS (11.7-14.9)
== END 2024-12-12 18:00 | disposition home or self-care (01) ==
LOC: MTLAB 16:21
PROVIDERS: Family Provider Internal Medicine; PCP Internal Medicine; Referring Provider Internal Medicine Cardiovascular Disease; Visit Provider Internal Medicine Cardiovascular Disease
DX: Z95.2 Presence of prosthetic heart valve (principal); Q87.40 Marfan syndrome, unspecified; Z95.828 Presence of other vascular implants and grafts; I34.0 Nonrheumatic mitral (valve) insufficiency; I35.9 Nonrheumatic aortic valve disorder, unspecified
CPT/HCPCS: 36415; 36416; 80053; 83880; 85025; 85610

== ENCOUNTER 2025-01-29 15:24 | Outpatient (RCR) | payer MEDICAID, SELFPAY ==
[2025-01-04 04:30] VITALS: BMI 19.4
[2025-01-29 15:35] LABS: INR Fingerstick 2.5; Prothrombin Time Fingerstick 26.3 SEC (11.7-14.9)
== END 2025-01-29 18:00 | disposition home or self-care (01) ==
LOC: LAB 15:24
PROVIDERS: Family Provider Internal Medicine; PCP Internal Medicine; Referring Provider Internal Medicine Cardiovascular Disease; Visit Provider Internal Medicine Cardiovascular Disease
DX: Z95.2 Presence of prosthetic heart valve (principal)
CPT/HCPCS: 36416; 85610

== ENCOUNTER 2025-03-04 16:01 | Outpatient (RCR) | payer MEDICAID, SELFPAY ==
[2025-03-04 16:14] LABS: INR Fingerstick 2.1
== END 2025-03-05 21:36 | disposition home or self-care (01) ==
LOC: LAB 16:01
PROVIDERS: Family Provider Internal Medicine; PCP Internal Medicine; Referring Provider Internal Medicine Cardiovascular Disease; Visit Provider Internal Medicine Cardiovascular Disease
DX: Z95.2 Presence of prosthetic heart valve (principal)
CPT/HCPCS: 36416; 85610

== ENCOUNTER 2025-04-03 16:00 | Outpatient (RCR) | payer MEDICAID, SELFPAY ==
[2025-04-08 14:26] LABS: INR Fingerstick 2.0
== END 2025-04-03 18:00 | disposition home or self-care (01) ==
LOC: LAB 16:00
PROVIDERS: Family Provider Internal Medicine; PCP Internal Medicine; Referring Provider Internal Medicine Cardiovascular Disease; Visit Provider Internal Medicine Cardiovascular Disease
DX: Z95.2 Presence of prosthetic heart valve (principal)
CPT/HCPCS: 36416; 85610

== ENCOUNTER 2025-04-27 11:34 | Outpatient (RCR) | payer MEDICAID, SELFPAY ==
[2025-04-27 12:32] LABS: Prothrombin Time (Protime)PT. 31.1 SECONDS (11.7-14.9)
== END 2025-05-05 18:00 | disposition home or self-care (01) ==
LOC: LAB 11:34
PROVIDERS: Family Provider Internal Medicine; PCP Internal Medicine; Referring Provider Internal Medicine Cardiovascular Disease; Visit Provider Internal Medicine Cardiovascular Disease
DX: Z95.2 Presence of prosthetic heart valve (principal)
CPT/HCPCS: 36415; 85610

== ENCOUNTER 2025-06-05 11:53 | Outpatient (RCR) | payer MEDICAID, SELFPAY ==
[2025-06-05 12:05] LABS: INR Fingerstick 3.9
== END 2025-06-05 18:00 | disposition home or self-care (01) ==
LOC: LAB 11:53
PROVIDERS: Family Provider Internal Medicine; PCP Internal Medicine; Referring Provider Internal Medicine Cardiovascular Disease; Visit Provider Internal Medicine Cardiovascular Disease
DX: Z95.2 Presence of prosthetic heart valve (principal)
CPT/HCPCS: 36416; 85610

== ENCOUNTER 2025-07-03 15:18 | Outpatient (RCR) | payer MEDICAID, SELFPAY ==
[2025-06-12 15:37] LABS: INR Fingerstick 2.8
[2025-07-03 15:31] LABS: INR Fingerstick 1.7
== END 2025-07-04 18:00 | disposition home or self-care (01) ==
LOC: LAB 15:18
PROVIDERS: Family Provider Internal Medicine; PCP Internal Medicine; Referring Provider Internal Medicine Cardiovascular Disease; Visit Provider Internal Medicine Cardiovascular Disease
DX: Z95.2 Presence of prosthetic heart valve (principal)
CPT/HCPCS: 36416; 85610

== ENCOUNTER 2025-07-24 16:25 | Outpatient (RCR) | payer MEDICAID, SELFPAY ==
[2025-07-14 10:19] LABS: INR Fingerstick 2.9
[2025-07-24 16:35] LABS: INR Fingerstick 3.1
== END 2025-07-24 18:00 | disposition home or self-care (01) ==
LOC: LAB 16:25
PROVIDERS: Family Provider Internal Medicine; PCP Internal Medicine; Referring Provider Internal Medicine Cardiovascular Disease; Visit Provider Internal Medicine Cardiovascular Disease
DX: Z95.2 Presence of prosthetic heart valve (principal)
CPT/HCPCS: 36416; 85610